=== PATIENT | female | born 1950 | race Caucasian/White ===

== ENCOUNTER 2019-04-27 13:09 | Observation (INO) ==
[2019-04-27] MEDS ORDERED: Ringers Solution, Lactated 1,000 ML IVC SCH ×2 (14:00→21:01)
--- NOTE | 2019-04-27 14:54 | Anesthesia Evaluation PreOp ---
Date of Encounter: 04/27/19 Time of Encounter: 14:52 - Past History Planned Operation: LEFT TKR Cardiac History: Denies any Significant Hx Pulmonary History: Denies Any Significant HX PATRON ATTENDANT History: Other (FIBROMYALGIA) Other Medical History: Other (OBESITY) Anesthesia History: No Prior Anesthetic Complications, Past Anesthesia Alcohol Use: none Drug use: none Medications and Allergies Cynthia-D 12 Hour Tablet 60 mg PO BID PRN 04/27/19 [History] Amitriptyline HCl 100 mg PO QPM 04/27/19 [History] Calcium 500 + Vit D Caplet 500 mg PO BID 04/27/19 [History] Diclofenac Sodium 100 mg PO DAILY 04/27/19 [History] Estradiol 2 mg PO DAILY 04/27/19 [History] FLUoxetine HCl [Fluoxetine HCl] 40 mg PO DAILY 04/27/19 [History] Mucinex Dm ER 1,200-60 mg Tab 60 - 1,200 mg PO Q12H 04/27/19 [History] [place]-3/Dha/Epa/Fish Oil [Fish Oil 1,000 mg Softgel] 1,000 mg PO DAILY 04/27/19 [History] Ondansetron HCl [Zofran] 4 mg PO Q8H PRN 04/27/19 [History] Polyethylene Glycol 3350 [MiraLAX] 17 gm PO DAILY PRN 04/27/19 [History] Tylenol 650 mg PO Q6H PRN 04/27/19 [History] Allergy/AdvReac Type Severity Reaction Status Date / Time aspirin Allergy Gastrointestinal Verified 04/17/19 09:29 Upset naproxen [From Naprosyn] Allergy Swelling Verified 04/17/19 09:29 of Lip/Tongue/Throat Penicillins Allergy Rash Verified 04/17/19 09:29 promethazine [From Phenergan] Allergy Gastrointestinal Verified 04/17/19 09:29 Upset Sulfa (Sulfonamide Allergy Rash Verified 04/17/19 09:29 Antibiotics) tetracycline [Tetracycline] Allergy Photosensit Verified 04/17/19 09:29 ivity - Meds/Allergy Pre-op Review Medications Reviewed: Yes Allergies Reviewed: Yes Beta Blockers on Current Med List: No Anesthesia Exam Vital Signs/O2 Sat, Most Current Temp Pulse Resp BP Pulse Ox 98.2 F 88 18 155/81 96 04/27/19 14:01 04/27/19 14:01 04/27/19 14:01 04/27/19 14:01 04/27/19 14:01 Weight: 107 KG - BMI 37 NPO (# of Hours): 8 - HEENT Mallampati: II Teeth: Edentulous - Cardiac Rhythm: Regular - Pulmonary Breath Sounds: bilateral Clear Anesthesia Assess/Plan ASA Score: 2 Anesthetic Plan: Regional Nerve Block, Spinal Monitoring Plan: Standard Monitors Recovery Plan: PACU
[2019-04-27] MEDS ORDERED: Scopolamine Patch 1.5 MG PATCH.TD72 TD ONE (15:08)
[2019-04-27] MEDS ORDERED: Gabapentin 300 MG CAPSULE PO ONE (15:08)
[2019-04-27] MEDS ORDERED: Acetaminophen IV 1,000 MG/100 ML INFUS..BTL IVPB ONE (15:08)
[2019-04-27] MEDS ORDERED: Albuterol 2.5 MG/3 ML NEBULIZER IH ONE (15:17)
[2019-04-27] MEDS ORDERED: *HR* HYDROmorphone (PF) 1 MG/ML SYRINGE IVP PRN (15:17)
[2019-04-27] MEDS ORDERED: *HR* OxyCODONE Immed Rel 5 MG TABLET PO PRN ×2 (15:17→21:01)
[2019-04-27] MEDS ORDERED: Ondansetron 4 MG/2 ML VIAL IVP ONE (15:17)
[2019-04-27] MEDS ORDERED: *HR* Promethazine 25 MG/ML VIAL IVP PRN ×2 (15:17→21:01)
--- NOTE | 2019-04-27 15:38 | History & Physical Report ---
Date of Encounter: 04/27/19 Time of Encounter: 15:38 24 Hour HP Update - Instructions Instructions: If the History and Physical is less than 30 days old and was completed prior to A.M. admission and or procedure and has NOT been updated on calendar day of procedure please complete this update prior to performing procedure. - Update Patient reports changes in Medical Condition: No Changes in examination, assessment, or condition: No Changes in Medication: No Preop tests/diagnostics Reviewed: Yes Surgery Remains Indicated: Yes Consent for Planned Operative Procedure(s) Verified: Yes - Pre-Operative Checklist Preoperative Checklist Indicated: No Prophylactic Antibiotic Ordered: Yes Is VTE Prophylaxis Indicated?: Yes
[2019-04-27] MEDS ORDERED: Ropivacaine/PF 0.5% 24.62 ML, EPINEPHrine 0.25 MG, Ketorolac 15 MG, Water for inj. (ste... IR ONE (16:05)
[2019-04-27] MEDS ORDERED: Tranexamic Acid 1,000 MG/10 ML VIAL ONE (16:18)
[2019-04-27] MEDS ORDERED: Lidocaine -MPF 2% 2 ML VIAL ONE ×3 (16:18→16:19)
[2019-04-27] MEDS ORDERED: Ethanol\\Acetic Acid\\Na Ace\\Ben 1,000 ML IRRIG.SOLN IR ONE ×2 (16:20→18:43)
[2019-04-27] MEDS ORDERED: Propofol 500 MG/50 ML INFUS..BTL ONE (16:22)
[2019-04-27] MEDS ORDERED: *HR* Midazolam HCl 2 MG/2 ML VIAL ONE (16:24)
[2019-04-27] MEDS ORDERED: *HR* PHENYLEPHRINE 1,000 MCG/10 ML SYRINGE IVP ONE (16:25)
[2019-04-27] MEDS ORDERED: ROPIVACAINE/PF/NS 0.25% 1 EACH SYRINGE INTRAART ONE (16:42)
[2019-04-27] MEDS ORDERED: Dexamethasone 4 MG/ML VIAL ONE (19:03)
--- NOTE | 2019-04-27 19:24 | Anesthesia Procedures ---
Date of Encounter: 04/27/19 Time of Encounter: 18:30 Procedures: Anesthesia - Epidural/Spinal Patient ID/Chart reviewed: Yes Patient examined: Yes Patient position: upright Local Anesthetic: Lidocaine 1% Interspace Used: L4-L5 Loss of Resistance (MELQUIADES): No Blood: No CSF: Yes Spinal Needle Gauge: 22 Spinal Dose: 10 mg marcaine
--- NOTE | 2019-04-27 19:30 | Orthopedic Operative Note ---
Date of procedure: 04/27/19 Pre-op diagnosis: Left knee arthritis Post-op diagnosis: same Procedure: Procedure: Left robotic-assisted Total knee replacement Estimated blood loss: 200 cc Hardware: Metal and polyethylene replacement. Ruffin Femur: 4 Tibia: 4 TS insert: 9 Patella: 36 Exam Under anesthesia: 2 degree hyperextension 5 degree valgus as calculated by the robot full flexion and no instability Procedural Notes: Grade 4 arthritic changes all 3 compartments. Operative procedure: The patient was brought to the operating room and placed on the operating room table. After general anesthesia was administered the operative knee was examined. Findings were noted in the exam under anesthesia. The operative extremity was prepped and draped in sterile surgical fashion. The patient received IV antibiotics prior to skin incision. A standard midline in cision was made centered over the patella. The incision was made through the skin and subcutaneous tissue. A medial parapatellar tendon approach was performed. Care was taken to preserve tissue along the medial aspect of the patella. And to protect the patella tendon. The deep MCL was released off the medial tibia. The infra patella fat pad was excised. The patella was everted and cut was made at the level of the insertion of the quadriceps and patella tendon. The patella was sized the guide was seated and the lug holes are drilled. Knee was brought into flexion. Patient noted to have grade 4 arthritic changes all 3 compartments. Steinmann pins were placed in the tibia and the femur for the tibial and femoral arrays respectively. Checkpoints were also placed in the tibia and the femur for calculation purposes. The knee including the femur and the tibial registered. Osteophytes, ACL and PCL were excised at this point. Extension and flexion were assessed with a valgus stress components were adjusted on the computer to balance the knee. Femoral cuts were made first with robotic assistance, these included the anterior cut posterior cuts chamfer cuts. Tibial cut was then performed with robotic assistance as well. Bone fragments were removed, as well as the medial and lateral meniscus. The size 4 femoral guide was seated box cut was made lug holes are drilled. The size 4 tibial tray was seated and prepared with the fin cutter. Trial reduction with the 9 TS Shonna revealed extension of 0 degree and 1 degree valgus full flexion. No varus valgus instability. Trial reduction revealed excellent patella tracking. All trial components were removed all bony surfaces were irrigated. The Tibia was seated followed by the femur, The selected Shonna size was seated and secured patella. Patient had similar findings for motion and stability. The knee was closed by the PA. The knee was then irrigated out with 2 L of pulse irrigation. The extensor mechanism was closed with #2 FiberWire suture and #2 PDS suture. The subcutaneous tissue was then irrigated and closed deep with #1 PDS suture superficially with 0 PDS suture and skin was closed with zip tie The patient was then placed in a sterile dressing and a postoperative brace extubated and transferred to recovery room in stable condition. Anesthesia: spinal Surgeon: Alvarado Alonzo Was there an assistant professor of german present: Yes Lead Sql Developer: Bob Jiménez Estimated blood loss (cc): 200 Condition: stable Disposition: PACU
--- NOTE | 2019-04-27 19:36 | Anesthesia Procedures ---
Date of Encounter: 04/27/19 Time of Encounter: 19:45 Procedures: Anesthesia - Nerve Block Procedure Date: 04/27/19 Time: 19:45 Allergies/Adv Reactions: Allergies Allergy/AdvReac Type Severity Reaction Status Date / Time aspirin Allergy Gastrointestinal Verified 04/17/19 09:29 Upset naproxen [From Naprosyn] Allergy Swelling Verified 04/17/19 09:29 of Lip/Tongue/Throat Penicillins Allergy Rash Verified 04/17/19 09:29 promethazine [From Phenergan] Allergy Gastrointestinal Verified 04/17/19 09:29 Upset Sulfa (Sulfonamide Allergy Rash Verified 04/17/19 09:29 Antibiotics) tetracycline [Tetracycline] Allergy Photosensit Verified 04/17/19 09:29 ivity Pre-op Diagnosis: Left Knee Arthritis Surgical Procedure: Robotic Left Toal Knee Arthroplasty Checklist: Correct Patient Identifier, Correct procedure, History checked Correct side: Left Blood Thinner: No Monitor Applied: EKG, BP, Pulse Oximetry Supplemental Oxygen via Nasal Cannula (L/min): 2 Indication: Post Op Analgesia Pre-op Neuro Deficits: No Block Type: Other (Adductor Canal Block) Sterile Technique: Yes Ultrasound used: Yes Anatomy identified: Yes Visual spread of Local: Yes Neuro Stimulation: No Blood on Needle Aspiration: No Smooth Injection of Local: Yes Pain with Injection of Local: No Prep: Chlorhexadine Needle: 21 x 100 mm Stimuplex Local: Ropivacaine (0.25% 20ml ) Volume (cc): 20ml Number of Attempts: 1 Complications: None/effective block Vitals: See Anesthesia Record Block performed in Operating Room at end of case. Comments: Adductor Canal Block performed in OR following case and BEFORE going to the PACU. 20ml of Ropivacaine 0.25% used Block performed without difficulty
--- NOTE | 2019-04-27 20:27 | Anesthesia Evaluation Post Op ---
Date of Encounter: 04/27/19 Time of Encounter: 20:35 - Vital Signs Vital Signs: O2 Sat Height 1.7 m Weight 106.594 kg O2 Sat by Pulse Oximetry 96 Vital Signs Temp Pulse Resp BP Pulse Ox 98.2 F 88 18 155/81 96 04/27/19 14:01 04/27/19 14:01 04/27/19 14:01 04/27/19 14:01 04/27/19 14:01 - Lungs Lungs: Clear Ascult./Percussion - Airway Airway: Non-obstructed - Cardiovascular Regular Rate - Mental Status Mental Status: Alert & Oriented, Answers Appropriately - Pain Pain Scale: 0 - Nausea Vomiting Nausea Vomiting: Not Present - Hydration Hydration: Ice chips - Discharge PostOp Status: Transfer Patient to floor
[2019-04-27 20:30] LABS: Hematocrit 38.5 % (35.3-44.9); Hemoglobin 12.2 g/dL (11.5-15.4)
[2019-04-27] MEDS ORDERED: Ondansetron ODT 4 MG TAB.RAPDIS PO PRN (21:01)
[2019-04-27] MEDS ORDERED: traMADol 50 MG TABLET PO PRN (21:01)
[2019-04-27] MEDS ORDERED: MOM Conc 10 ML UD.LIQ PO PRN (21:01)
[2019-04-27] MEDS ORDERED: Temazepam 15 MG CAPSULE PO PRN (21:01)
[2019-04-27] MEDS ORDERED: Loratadine/Pseudophed (12 HR) 1 EACH TABLET PO PRN (21:01)
[2019-04-27] MEDS ORDERED: HYDROcodone BIT/Homatropine 5 MG TABLET PO PRN (21:01)
[2019-04-27] MEDS ORDERED: Ondansetron 4 MG/2 ML VIAL IVP PRN (21:01)
[2019-04-27] MEDS ORDERED: Naloxone 0.4 MG/ML INJ IVP PRN (21:01)
[2019-04-27] MEDS ORDERED: Sennosides 8.6 MG TABLET PO PRN (21:01)
[2019-04-27] MEDS: Ascorbic Acid 500 MG TABLET PO SCH (22:13)
[2019-04-27] MEDS: *HR* Enoxaparin 30 MG/0.3 ML SYRINGE SQ SCH (22:13)
[2019-04-28 02:19] LABS: Basophils % 0.2 %; Hematocrit 39.9 % (35.3-44.9); Hemoglobin 12.6 g/dL (11.5-15.4); Immature Granulocytes % 0.3 % (0-4); Lymphocytes # 0.9 K/mcL (0.6-4.6); Lymphocytes % 9.8 %; Mean Corpuscular HGB Conc 31.6 g/dL (31.6-35.5); Mean Corpuscular Hemoglobin 27.3 pg (28.0-33.3); Mean Corpuscular Volume 86.6 fL (83.0-100.0); Mean Platelet Volume 9.7 fL (9.4-12.4); Monocytes # 0.2 K/mcL (0.0-1.3); Monocytes % 1.9 %; Neutrophils # 8.4 K/mcL (1.6-8.9); Platelet Count 232 K/mcL (140-400); Red Blood Count 4.61 M/mcL (3.82-4.97); Red Cell Distribution Width 14.8 % (11.5-14.5); Segmented Neutrophils % 87.8 %; White Blood Count 9.6 K/mcL (4.3-11.1)
[2019-04-28 02:39] LABS: BUN/Creatinine Ratio 22 (6-26); Blood Urea Nitrogen 22 mg/dL (8-23); Calcium 8.8 mg/dL (8.6-10.3); Carbon Dioxide 22 mEq/L (23-29); Chloride 104 mEq/L (98-107); Glucose 141 mg/dL (70-105); Osmolality,Calculated 288 (280-300); Potassium 4.8 mEq/L (3.5-5.1); Sodium 136 mEq/L (136-145); eGFR For African Americans > 60 (> 60); eGFR For Non-African Americans 53 (> 60)
[2019-04-28] MEDS: *HR* Enoxaparin 30 MG/0.3 ML SYRINGE SQ SCH ×2 (06:21→17:44)
--- NOTE | 2019-04-28 06:43 | Orthopedics Progress Note ---
Date of Encounter: 04/28/19 Time of Encounter: 06:43 Subjective Interval history: Patient was seen this morning doing well without complaints. Afebrile vital signs stable. Operative extremity: Neurovascularly intact Dressing clean dry and intact Calves nontender Assessment and plan: Continue with postoperative care Hematocrit 39 plan for discharge today Objective Vital signs: Vital Signs Temp Pulse Resp BP Pulse Ox 04/28/19 04:37 98.2 F 79 17 163/84 92 04/27/19 23:13 98.4 F 71 15 153/75 90 04/27/19 21:02 97.7 F 77 16 143/82 99 04/27/19 20:38 97.8 F 78 16 150/69 96 04/27/19 20:28 97.8 F 80 12 150/69 100 04/27/19 20:18 82 14 147/64 100 04/27/19 20:08 85 14 166/76 100 04/27/19 19:58 98.8 F 92 12 157/78 99 04/27/19 14:01 98.2 F 88 18 155/81 96 Intake and Output 04/27/19 04/27/19 04/28/19 15:59 23:59 07:59 Intake Total 250 / 250 100 / 100 Output Total 200 / 200 Balance 50 / 50 100 / 100 Intake: IV Fluids 250 / 250 100 / 100 Vancocin 1,500 MG In 0.9 % 250 / 250 Sodium Chloride 250 ML @ 167 mls/hr IVPB ONCE ONE Rx#: [id number] Ancef 2,000 MG In 0.9 % Sodium 100 / 100 Chloride 100 ML @ 200 mls/hr IVPB Q8HR [facility] Rx#:[id number] Output: Estimated Blood Loss 200 / 200 Other: # Voids 1 # Urine Diapers 1 Weight 106.594 kg 113.1 kg Blood Glucose* 105 115 130 Patient Weight 04/28/19 23:59 Weight 113.1 kg - Labs CBC & BMP: 04/28/19 02:00 04/28/19 02:00 Labs: Abnormal lab results MCH 27.3 pg (28.0-33.3) L 04/28/19 02:00 RDW 14.8 % (11.5-14.5) H 04/28/19 02:00 Carbon Dioxide 22 mEq/L (23-29) L 04/28/19 02:00 Est GFR (Non-Af Amer) 53 (> 60) L 04/28/19 02:00 Glucose 141 mg/dL (70-105) H 04/28/19 02:00 POC Glucose 130 mg/dL (70-99) H 04/28/19 05:16 Consult Discharge Plan - Plan Referrals: Elijah Nathan DO [Primary Care Provider] - Prescriptions: Enoxaparin [Lovenox] 30 mg SQ Q12HR #20 syr OxyCODONE Immed Rel [Roxicodone 5 MG] 5 mg PO Q6HR PRN 5 Days #20 tablet PRN Reason: Pain
[2019-04-28] MEDS: FLUoxetine 20 MG CAPSULE PO SCH (08:07)
[2019-04-28] MEDS: Ascorbic Acid 500 MG TABLET PO SCH ×2 (08:07→17:43)
[2019-04-28] MEDS: Multivit/Ca/Min/Fe/FA 1 TAB TABLET PO SCH (08:08)
[2019-04-28] MEDS: Diclofenac Sodium (24 HR) 100 MG TABLET PO SCH (08:08)
[2019-04-28] MEDS: (Fish Oil 1,000 Mg Softgel) PO SCH (08:08)
[2019-04-28] MEDS ORDERED: Ringers Solution, Lactated 1,000 ML ONE (09:52)
--- NOTE | 2019-04-28 12:37 | Event Note ---
Date of Encounter: 04/28/19 Time of Encounter: 11:20 PCR - POD#1 s/p left TKR 04/27/19 Patient seen at bedside. A&O x 3. she is complaining of being lightheaded and weak today. Per nurse had syncopal episode this morning. Patient was on BSC and went to get up states she took one step then became very lightheaded and she states she was able to hear everyone talking to her but could not see. currently states lightheadedness is a little better than earlier. Denies any chest pain or SOB. Afebrile. She has been running hypertensive and hypoxic since surgery 90-93% and did increase to 98% after adding 2L nasal canula O2. this was likely added during the syncopal episode this morning as patient is not currently wearing nasal canula. Will consult hospitalist for recommendations as syncopal episode is not related to hypotension, hypoglycemia or anemia and continued hypoxia this morning. Dressings do have quarter sized fresh bloody drainage to middle of incision. will draw borders and continue to monitor. will add pressure dressing if continues. No calf tenderness to palpation, good dorsiflexion of foot, sensation intact di stally. Labs reviewed. H/H - 12.6/39.9 stable, asymptomatic Pain control: adequate Participating in PT. had syncopal episode during therapy session this morning. All questions and concerns addressed. Educated on use of incentive spirometer. Encouraged ambulation and proper hydration. Patient educated on post-operative restrictions and post-operative care. I did discuss with patient DVT prophylaxis options as she is unable to take aspirin due to causing gastric ulcers, recommendation for lovenox but patient is leary of giving herself injections at home and she states eliquis is too expensive as her recently tried getting this medication with same insurance. Will young check medications and patient considering letting her give the injections if necessary. Assessment and plan: Continue with postoperative care Discharge plan: Home, preplan for outpatient therapy, awaiting therapist recommendations once able to have full eval.
--- NOTE | 2019-04-28 12:44 | Internal Medicine Consult Note ---
Date of Encounter: 04/28/19 Time of Encounter: 12:42 - Assessment and Plan (1) Syncope Current Visit: Yes Status: Acute Assessment and plan: Possible etiologies include vasovagal syncope, hypoglycemia, orthostatic hypotension. This was related to positioning as she was trying to get up with assistance, shortly before straining on the bedside commode trying to have a bowel movement. Denies CP, SOB, palpitations, n/v, diaphoresis. No focal deficits on exam. - EKG with telemetry monitoring - glucose check now, and if patient becomes symptomatic - orthostatic BP and HR vitals. Qualifiers: Syncope type: unspecified Qualified Code(s): R55 - Syncope and collapse (2) S/P total knee arthroplasty Current Visit: Yes Status: Acute Assessment and plan: Management per orthopedic surgery Qualifiers: Laterality: left Qualified Code(s): Z96.652 - Presence of left artificial knee joint - Time Spent With Patient Total time spent is greater than 50% in coordination of care (as documented) at patient's floor/unit and/or counseling patient: Internal Medicine - CN: HPI - Data of Consult Requesting Physician: Alvarado Alonzo MD - Consult Narrative History of present illness: Ms. Mayorga is a 69 year old female with history of borderline Type 2 DM is here for left TKA which was done yesterday without issue. Consult is made today for a syncopal episode. Patient tolerated procedure yesterday without issue. Earlier today, patient was on bedside commode, straining to have a bowel movement. She was unable to have a bowel movement so she had assistants stand her up. Patient states shortly after standing up, she started feeling lightheaded and passed out. Per nursing, she did not hit her head. Patient denied any change in vision, headache, loss of bowel/bladder function, focal deficits prior to incident. She denies chest pain, SOB, n/v. She awoke from syncopal episode without any confusion. Past Med Surg Social Fam HX - Past Medical History Medical history: arthritis, diabetes, fibromyalgia, glaucoma Additional medical history: hypoglycemia,anemia Psychiatric history: anxiety, depression - Past Surgical History Surgical History: appendectomy, cholecystectomy, hysterectomy Additional surgical history: bladder surgeries multiple - Social History Smoking Status: Never smoker Smokeless Tobacco Status: No Alcohol use: none Drug use: none Internal Medicine - CN: Meds Cynthia-D 12 Hour Tablet 60 mg PO BID PRN 04/27/19 [History] Amitriptyline HCl 100 mg PO QPM 04/27/19 [History] Calcium 500 + Vit D Caplet 500 mg PO BID 04/27/19 [History] Diclofenac Sodium 100 mg PO DAILY 04/27/19 [History] Enoxaparin [Lovenox] 30 mg SQ Q12HR #20 syr 04/27/19 [Rx] Estradiol 2 mg PO DAILY 04/27/19 [History] FLUoxetine HCl [Fluoxetine HCl] 40 mg PO DAILY 04/27/19 [History] Mucinex Dm ER 1,200-60 mg Tab 60 - 1,200 mg PO Q12H 04/27/19 [History] [place]-3/Dha/Epa/Fish Oil [Fish Oil 1,000 mg Softgel] 1,000 mg PO DAILY 04/27/19 [History] Ondansetron HCl [Zofran] 4 mg PO Q8H PRN 04/27/19 [History] OxyCODONE Immed Rel [Roxicodone 5 MG] 5 mg PO Q6HR PRN 5 Days #20 tablet 04/27/19 [Rx] Polyethylene Glycol 3350 [MiraLAX] 17 gm PO DAILY PRN 04/27/19 [History] Tylenol 650 mg PO Q6H PRN 04/27/19 [History] Allergy/AdvReac Type Severity Reaction Status Date / Time aspirin Allergy Gastrointestinal Verified 04/17/19 09:29 Upset naproxen [From Naprosyn] Allergy Swelling Verified 04/17/19 09:29 of Lip/Tongue/Throat Penicillins Allergy Rash Verified 04/17/19 09:29 promethazine [From Phenergan] Allergy Gastrointestinal Verified 04/17/19 09:29 Upset Sulfa (Sulfonamide Allergy Rash Verified 04/17/19 09:29 Antibiotics) tetracycline [Tetracycline] Allergy Photosensit Verified 04/17/19 [facility] - CN: Exam - Constitutional Vitals: Temp Pulse Resp BP Pulse Ox 97.9 F 64 18 170/81 96 04/28/19 11:34 04/28/19 11:34 04/28/19 11:34 04/28/19 11:34 04/28/19 11:34 General appearance IM: Present: A&O X 3, no acute distress Exam: . - Head Head exam: Present: atraumatic, normocephalic - Eye Eye exam: Present: EOMI, PERRL - ENT ENT exam: Present: mucous membranes moist - Neck Neck exam general surgery: Present: full ROM. Absent: lymphadenopathy - Respiratory Respiratory exam: Present: CTAB - Cardiovascular Cardiovascular exam IM: Present: RRR - GI/Abdominal GI/Abdominal exam IM: Present: soft. Absent: rebound, rigid, tenderness - Extremities Exam Extremities exam IM: Absent: pedal edema - Neurological Exam Neurological exam: Present: abnormal gait (gait cannot be assessed due to post- op status), alert, CN II-XII intact, no focal deficits. Absent: altered - Expanded Neurological Exam Patient oriented to: Present: person, place, time Speech: Absent: expressive aphasia, garbled, receptive aphasia, slurred, stutter, total aphasia - Skin Skin exam IM: Absent: rash Internal Medicine - CN: Reslt - Labs CBC & Chem 7: 04/28/19 02:00 04/28/19 02:00 Labs: Short CBC 04/27/19 04/28/19 Range/Units 20:13 02:00 WBC 9.6 (4.3-11.1) K/mcL Hgb 12.2 12.6 (11.5-15.4) g/dL Hct 38.5 39.9 (35.3-44.9) % Plt Count 232 (140-400) K/mcL Neutrophils # 8.4 (1.6-8.9) K/mcL BMP 04/28/19 02:00 Sodium 136 Potassium 4.8 Chloride 104 Carbon Dioxide 22 L BUN 22 Creatinine 1.02 Glucose 141 H Calcium 8.8 - Impressions Impressions Knee X-Ray 04/27/19 15:38 IMPRESSION: Status post left knee arthroplasty. No acute postoperative complication. D/ / 04/28/2019 08:03:36 Shelton Hendrix MD / eb Interpreting Provider: Shelton Hendrix MD Consult Discharge Plan - Plan Referrals: Elijah Nathan DO [Primary Care Provider] - Prescriptions: Enoxaparin [Lovenox] 30 mg SQ Q12HR #20 syr OxyCODONE Immed Rel [Roxicodone 5 MG] 5 mg PO Q6HR PRN 5 Days #20 tablet PRN Reason: Pain
--- NOTE | 2019-04-28 13:20 | Discharge Summary ---
<Alvarado Alonzo - Last Filed: 04/28/19 13:18> Orders not resulted at time of discharge: Pending orders 04/27/19 19:24 Surgical Pathology [PTH] Routine 04/28/19 13:06 ECG 12 lead ECG [ECG] Routine 04/29/19 04:00 Basic Metabolic Panel DAILY Complete Blood Count [HEME] DAILY Date of Encounter: 04/28/19 - Discharge Diagnosis (1) Arthritis of left knee Priority: Primary Status: Chronic (2) Obesity (BMI 30-39.9) Priority: Secondary Status: Chronic (3) S/P total knee arthroplasty Priority: Primary Status: Acute Qualifiers: Laterality: left Qualified Code(s): Z96.652 - Presence of left artificial knee joint (4) Syncope Priority: Primary Status: Acute Qualifiers: Syncope type: unspecified Qualified Code(s): R55 - Syncope and collapse - Hospital Course Hospital course: Ms. Mayorga is a 69 year old female - Time Spent with Patient Total time spent providing and/or coordinating discharge services: - Discharge Medications Prescriptions: New OxyCODONE Immed Rel [Roxicodone 5 MG] 5 mg PO Q6HR PRN 5 Days #20 tablet PRN Reason: Pain Enoxaparin [Lovenox] 30 mg SQ Q12HR #20 syr Meclizine [Antivert] 25 mg PO TID 7 Days #42 tablet Docusate Sodium [Colace] 100 mg PO BID 5 Days #10 capsule Continued Acetaminophen [Tylenol] 325 mg PO Q6H PRN #0 PRN Reason: Pain GuaiFENesin/Pseudophedrine [Mucinex D] 1 each PO Q12H PRN #0 PRN Reason: cough/congestion Polyethylene Glycol 3350 [MiraLAX] 17 gm PO DAILY PRN PRN Reason: Constipation FLUoxetine HCl [Fluoxetine HCl] 40 mg PO QAM Bethesda-3/Dha/Epa/Fish Oil [Fish Oil 1,000 mg Softgel] 1,000 mg PO DAILY Estradiol 2 mg PO HS Calcium Carbonate/Vitamin D3 [Calcium 500 + Vit D Caplet] 1 each PO QAM #0 Amitriptyline HCl 100 mg PO QPM Diclofenac Sodium (24 HR) [Voltaren XR] 10 mg PO HS Fexofenadine/Pseudoephedrine [Cynthia-D 12 Hour Tablet] 1 each PO BID PRN PRN Reason: Allergy Symptoms Ondansetron HCl 8 mg PO Q12H PRN PRN Reason: Nausea Home Medications: Acetaminophen [Tylenol] 325 mg PO Q6H PRN #0 04/27/19 [History] Amitriptyline HCl 100 mg PO QPM 04/27/19 [History] Calcium Carbonate/Vitamin D3 [Calcium 500 + Vit D Caplet] 1 each PO QAM #0 04/27/19 [History] Enoxaparin [Lovenox] 30 mg SQ Q12HR #20 syr 04/27/19 [Rx] Estradiol 2 mg PO HS 04/27/19 [History] FLUoxetine HCl [Fluoxetine HCl] 40 mg PO QAM 04/27/19 [History] GuaiFENesin/Pseudophedrine [Mucinex D] 1 each PO Q12H PRN #0 04/27/19 [History] Bethesda-3/Dha/Epa/Fish Oil [Fish Oil 1,000 mg Softgel] 1,000 mg PO DAILY 04/27/19 [History] OxyCODONE Immed Rel [Roxicodone 5 MG] 5 mg PO Q6HR PRN 5 Days #20 tablet 04/27/19 [Rx] Polyethylene Glycol 3350 [MiraLAX] 17 gm PO DAILY PRN 04/27/19 [History] Diclofenac Sodium (24 HR) [Voltaren XR] 10 mg PO HS 04/30/19 [History] Fexofenadine/Pseudoephedrine [Cynthia-D 12 Hour Tablet] 1 each PO BID PRN 04/30/19 [History] Ondansetron HCl 8 mg PO Q12H PRN 04/30/19 [History] Docusate Sodium [Colace] 100 mg PO BID 5 Days #10 capsule 05/01/19 [Rx] Meclizine [Antivert] 25 mg PO TID 7 Days #42 tablet 05/01/19 [Rx] Allergies/Adverse Reactions: Allergy/AdvReac Type Severity Reaction Status Date / Time aspirin Allergy Gastrointestinal Verified 04/30/19 12:54 Upset naproxen [From Naprosyn] Allergy Swelling Verified 04/30/19 12:54 of Lip/Tongue/Throat Penicillins Allergy Rash Verified 04/30/19 12:54 promethazine [From Phenergan] Allergy Gastrointestinal Verified 04/30/19 12:54 Upset Sulfa (Sulfonamide Allergy Rash Verified 04/30/19 12:54 Antibiotics) tetracycline [Tetracycline] Allergy Photosensit Verified 04/30/19 12:54 ivity Primary care physician: Elijah Dorman Colopy Consults: 04/27/19 21:01 Consult to Nutrition [CONS] Routine Comment: Consulting Provider: NUTRITION Reason for Dietary Consult: Other Other:: Proper nutrition to facilitate wound healing Consult to Occupational Therapy [CONS] Routine Comment: Evaluate, develop and implement POC Reason for Consult: post knee surgery Does patient have active BEDREST order?: No Is patient medically & hemodynamically stable?: Yes Consult to Orthopedic Navigator [CONS] [CONS] Routine Consult to Physical Therapy [CONS] Routine Comment: Evaluate, develop and impliment POC Reason for Consult: post knee surgery Does patient have active BEDREST order?: No Is patient medically & hemodynamically stable?: Yes Consult to Safe Expert [CONS] Routine Reason for SW Consult: post op joint replacement RT Post Op Consult [CONS] Routine 04/28/19 11:39 Consult to Hospitalist [CONS] Routine Consulting Provider: Hospitalist Hunter Reason for Consult: SYNCOPAL EPISODE, HTN, HYPOXIA Call Completed: Yes Labs on day of discharge: Labs from last 24 hours 04/28/19 04/28/19 04/28/19 05:16 02:00 02:00 WBC 9.6 RBC 4.61 Hgb 12.6 Hct 39.9 MCV 86.6 MCH 27.3 L MCHC 31.6 RDW 14.8 H Plt Count 232 MPV 9.7 Immature Gran % 0.3 Seg Neutrophils % 87.8 Lymphocytes % 9.8 Monocytes % 1.9 Eosinophils % 0.0 Basophils % 0.2 Neutrophils # 8.4 Lymphocytes # 0.9 Monocytes # 0.2 Eosinophils # 0.0 Basophils # 0.0 Sodium 136 Potassium 4.8 Chloride 104 Carbon Dioxide 22 L BUN 22 Creatinine 1.02 Est GFR ( Amer) > 60 Est GFR (Non-Af Amer) 53 L BUN/Creatinine Ratio 22 Glucose 141 H POC Glucose 130 H Calculated Osmolality 288 Calcium 8.8 04/27/19 04/27/19 20:13 13:55 WBC RBC Hgb 12.2 Hct 38.5 MCV MCH MCHC RDW Plt Count MPV Immature Gran % Seg Neutrophils % Lymphocytes % Monocytes % Eosinophils % Basophils % Neutrophils # Lymphocytes # Monocytes # Eosinophils # Basophils # Sodium Potassium Chloride Carbon Dioxide BUN Creatinine Est GFR ( Amer) Est GFR (Non-Af Amer) BUN/Creatinine Ratio Glucose POC Glucose 105 H Calculated Osmolality Calcium - Impressions ITS Impressions Knee X-Ray 04/27/19 15:38 IMPRESSION: Status post left knee arthroplasty. No acute postoperative complication. D/ / 04/28/2019 08:03:36 Shelton Hendrix MD / eb Interpreting Provider: Shelton Hendrix MD - Patient Status Disposition: Home, Self-Care Condition: Good - Discharge Instructions Follow Up With: Elijah Nathan DO [Primary Care Provider] - <Clover Sagastume - Last Filed: 05/01/19 11:33> Orders not resulted at time of discharge: Pending orders 04/27/19 19:24 Surgical Pathology [PTH] Routine 04/28/19 13:06 ECG 12 lead ECG [ECG] Routine Date of Encounter: 05/01/19 Time of Encounter: 09:33 - Discharge Diagnosis (1) S/P total knee arthroplasty Priority: Primary Status: Acute Qualifiers: Laterality: left Qualified Code(s): Z96.652 - Presence of left artificial knee joint (2) Arthritis of left knee Priority: Primary Status: Chronic (3) Obesity (BMI 30-39.9) Priority: Secondary Status: Chronic (4) Dizziness Priority: Secondary Status: Acute - Hospital Course Hospital course: Ms. Mayorga is a 69 year old female POD# 4 s/p Left robotic-assisted Total knee replacement [arthritis] 04/27/[address] Alonzo Patient seen at bedside. Resting comfortable. No acute distress. A&Ox3 Dressing and incision d/i. Scant old drainage noted. No calf tenderness, erythema, or warmth. Neurovascularly intact b/l LE. Labwork, vitals, and medications reviewed. Pain control: Adequate Participating in therapy. All questions and concerns addressed. Educated on use of incentive spirometer, ambulation, and hydration. Patient educated on post-operative restrictions and care. Addressed: Dressing change prior to discharge D/C plan: Home with outpatient therapy - Time Spent with Patient Total time spent providing and/or coordinating discharge services: Date of admission: 04/28/19 15:54 Primary care physician: Elijah R Colopy Consults: 04/27/19 21:01 Consult to Nutrition [CONS] Routine Comment: Consulting Provider: NUTRITION Reason for Dietary Consult: Other Other:: Proper nutrition to facilitate wound healing Consult to Occupational Therapy [CONS] Routine Comment: Evaluate, develop and implement POC Reason for Consult: post knee surgery Does patient have active BEDREST order?: No Is patient medically & hemodynamically stable?: Yes Consult to Orthopedic Navigator [CONS] [CONS] Routine Consult to Physical Therapy [CONS] Routine Comment: Evaluate, develop and impliment POC Reason for Consult: post knee surgery Does patient have active BEDREST order?: No Is patient medically & hemodynamically stable?: Yes Consult to Safe Expert [CONS] Routine Reason for SW Consult: post op joint replacement RT Post Op Consult [CONS] Routine 04/28/19 11:39 Consult to Hospitalist [CONS] Routine Consulting Provider: Hospitalist Hunter Reason for Consult: SYNCOPAL EPISODE, HTN, HYPOXIA Call Completed: Yes Discharging clinician: Alvarado Alonzo Anticipated date of discharge: 05/01/19 - VTE Documentation of Mechanical Device: Venous foot pump, device Labs on day of discharge: Labs from last 24 hours 05/01/19 05/01/19 04/30/19 06:22 06:22 16:54 WBC 9.5 RBC 4.22 Hgb 11.7 Hct 37.3 MCV 88.4 MCH 27.7 L MCHC 31.4 L RDW 15.2 H Plt Count 223 MPV 9.9 Immature Gran % 0.7 Seg Neutrophils % 61.7 Lymphocytes % 28.3 Monocytes % 6.2 Eosinophils % 2.6 Basophils % 0.5 Neutrophils # 5.8 Lymphocytes # 2.7 Monocytes # 0.6 Eosinophils # 0.3 Basophils # 0.1 Sodium 137 Potassium 4.1 Chloride 100 Carbon Dioxide 24 BUN 17 Creatinine 0.87 Est GFR ( Amer) > 60 Est GFR (Non-Af Amer) > 60 BUN/Creatinine Ratio 20 Glucose 115 H POC Glucose 128 H Calculated Osmolality 286 Calcium 9.3 Phosphorus Magnesium 04/30/19 04/30/19 04/30/19 13:54 11:22 07:28 WBC RBC Hgb Hct MCV MCH MCHC RDW Plt Count MPV Immature Gran % Seg Neutrophils % Lymphocytes % Monocytes % Eosinophils % Basophils % Neutrophils # Lymphocytes # Monocytes # Eosinophils # Basophils # Sodium Potassium Chloride Carbon Dioxide BUN Creatinine Est GFR ( Amer) Est GFR (Non-Af Amer) BUN/Creatinine Ratio Glucose POC Glucose 113 H 114 H Calculated Osmolality Calcium Phosphorus 2.4 L Magnesium 1.6 - Impressions ITS Impressions Knee X-Ray 04/27/19 15:38 IMPRESSION: Status post left knee arthroplasty. No acute postoperative complication. D/ / 04/28/2019 08:03:36 Shelton Hendrix MD / eb Interpreting Provider: Shelton Hendrix MD Head CT 04/28/19 15:08 IMPRESSION: No acute intracranial abnormality. D/ / Mark Soto MD / Mark Soto MD Interpreting Provider: Mark Soto MD Echocardiogram 04/28/19 15:09 Impressions: LVEF 60-65%. Mild left ventricular diastolic dysfunction. Normal right ventricular structure and function. No significant valvular dysfunction. No pulmonary hypertension. Left Ventricular Wall Motion: Rest Echo Findings All wall segments showed normal motion. Findings: Study Quality * Technically adequate exam. ECG Findings * Normal sinus rhythm. Left Ventricle * LVEF 60-65%. * Normal LV chamber size, wall thickness and systolic function. * Mild left ventricular diastolic dysfunction. Right Ventricle * Normal right ventricular structure and function. Left Atrium * Normal left atrial size. Right Atrium * Normal right atrial size. Interatrial Septum * Interatrial septum not well evaluated. Aortic Valve * Trileaflet aortic valve with normal function. * No aortic stenosis. * No aortic regurgitation. Mitral Valve * Normal mitral valve structure. * No mitral stenosis. * Trace mitral regurgitation. Tricuspid Valve * Normal tricuspid valve structure. * No tricuspid stenosis. * Trace tricuspid regurgitation. * Estimated RVSP is 32 mmHg. * Estimated RA pressure is 8 mmHg. * No pulmonary hypertension. Pulmonic Valve * Pulmonic valve is not well visualized. * No pulmonic stenosis. * Trace pulmonic regurgitation. Aorta * Normally sized aortic root. Pericardium * The pericardium appears normal. IVC * The IVC is not dilated. * < 50% respiratory change. - Patient Status Functional capacity at discharge: uses cane/walker Overall status at discharge: patient is progressing back to baseline - Diet and Activity Activity: as per physical therapy Diet: advance to your usual diet
[2019-04-29] MEDS ORDERED: *HR* HYDROcodone/Acet 7.5/325 mg TABLET PO ONE (02:03)
[2019-04-29 04:43] LABS: Basophils % 0.5 %; Eosinophils # 0.1 K/mcL (0.0-0.6); Eosinophils % 1.7 %; Hematocrit 36.6 % (35.3-44.9); Hemoglobin 11.5 g/dL (11.5-15.4); Immature Granulocytes % 0.4 % (0-4); Lymphocytes # 2.1 K/mcL (0.6-4.6); Lymphocytes % 26.7 %; Mean Corpuscular HGB Conc 31.4 g/dL (31.6-35.5); Mean Corpuscular Hemoglobin 27.9 pg (28.0-33.3); Mean Corpuscular Volume 88.8 fL (83.0-100.0); Mean Platelet Volume 9.6 fL (9.4-12.4); Monocytes # 0.6 K/mcL (0.0-1.3); Monocytes % 7.2 %; Neutrophils # 4.9 K/mcL (1.6-8.9); Platelet Count 192 K/mcL (140-400); Red Blood Count 4.12 M/mcL (3.82-4.97); Red Cell Distribution Width 14.8 % (11.5-14.5); Segmented Neutrophils % 63.5 %; White Blood Count 7.7 K/mcL (4.3-11.1)
[2019-04-29 04:59] LABS: BUN/Creatinine Ratio 18 (6-26); Blood Urea Nitrogen 16 mg/dL (8-23); Calcium 8.7 mg/dL (8.6-10.3); Carbon Dioxide 27 mEq/L (23-29); Chloride 102 mEq/L (98-107); Glucose 140 mg/dL (70-105); Osmolality,Calculated 285 (280-300); Sodium 136 mEq/L (136-145); eGFR For African Americans > 60 (> 60); eGFR For Non-African Americans > 60 (> 60)
[2019-04-29] MEDS: *HR* Enoxaparin 30 MG/0.3 ML SYRINGE SQ SCH ×2 (05:21→18:45)
[2019-04-29] MEDS: Diclofenac Sodium (24 HR) 100 MG TABLET PO SCH (08:10)
[2019-04-29] MEDS: Ascorbic Acid 500 MG TABLET PO SCH ×2 (08:10→18:45)
[2019-04-29] MEDS: Multivit/Ca/Min/Fe/FA 1 TAB TABLET PO SCH (08:11)
[2019-04-29] MEDS: FLUoxetine 20 MG CAPSULE PO SCH (08:11)
--- NOTE | 2019-04-29 08:47 | Internal Med Progress Note ---
Hospitalist Progress Note - Encounter Date of Encounter: 04/29/19 Time of Encounter: 08:43 - Subjective Interval History: Patient seen and examined this morning at bedside. She did have one more similar episode that she had yesterday while she was lying down on bed. She describes room spinning around but denies any blacking out or loss of consciousness. Denies feeling nauseous or ringing year. She does have a history of internal ear problems and she takes lencho -D. and on-off meclizine. Denies any chest pain or difficulty breathing. - Exam Vitals: Temp Pulse Resp BP Pulse Ox 97.7 F 78 15 119/74 93 04/29/19 07:08 04/29/19 07:08 04/29/19 07:08 04/29/19 07:08 04/29/19 07:08 Exam: General: In no acute distress. Respiratory exam: CTAB. no accessory muscle use, rales, rhonchi, wheezes Cardiovascular exam: RRR, +S1, +S2. no murmur, gallop, rubs. GI/Abdominal exam: Non-tender, Non-distended, normal bowel sounds, soft, no peritoneal signs. Extremities exam: no pedal edema, pulses palpable in b/l lower extremities. no calf tenderness. Lt knee dressing intact. Neurological exam: CN II-XII intact, AO X3, no gross focal deficits. Skin exam: No skin rash - Assessment and Plan (1) S/P total knee arthroplasty Current Visit: Yes Status: Acute (2) Dizziness Current Visit: Yes Status: Acute - Summary of Assessment and Plan Summary of Assessment and Plan: - Patient never had loss of consciousness. She had total 3 episodes none of the time she had any blacking out. She describes event as the room spinning around and her feeling weak with imbalance. - Orthostatic vitals unremarkable. - Head CT unremarkable. Patient without any focal deficits. No convulsive episodes noted. - EKG unremarkable. Telemetry reading unremarkable except periodic APCs. - Patient worried about hypoglycemia as it happened before. She is not on any diabetic medication. Blood glucose around 140s. We will check for A1c if she is diabetic. will need outpatient follow-up for further workup if she has history of hypoglycemia without diabetes medication. - Patient also mentioned some history of internal ear problems for which she takes Lencho-D which is nonformulary. Continue Claritin-D scheduled with meclizine when necessary for dizziness. - No further inpatient workup is needed for her dizziness which is more vertiginous in nature. - Patient was plan to discharge home however PT assessment is pending. We will defer discharge planning the orthopedist. Patient would like PT assessment before going home. Internal Medicine: Result - Labs CBC & Chem 7: 04/29/19 04:14 04/29/19 04:14 Labs: Short CBC 04/29/19 Range/Units 04:14 WBC 7.7 (4.3-11.1) K/mcL Hgb 11.5 (11.5-15.4) g/dL Hct 36.6 (35.3-44.9) % Plt Count 192 (140-400) K/mcL Neutrophils # 4.9 (1.6-8.9) K/mcL BMP 04/29/19 04:14 Sodium 136 Potassium 4.0 Chloride 102 Carbon Dioxide 27 BUN 16 Creatinine 0.90 Glucose 140 H Calcium 8.7 Cardiac Enzymes 04/28/19 Range/Units 15:27 Troponin I < 0.03 (< 0.04) ng/mL - Impressions Impressions Knee X-Ray 04/27/19 15:38 IMPRESSION: Status post left knee arthroplasty. No acute postoperative complication. D/ / 04/28/2019 08:03:36 Shelton Hendrix MD / eb Interpreting Provider: Shelton Hendrix MD Head CT 04/28/19 15:08 IMPRESSION: No acute intracranial abnormality. D/ / Mark Soto MD / Mark Soto MD Interpreting Provider: Mark Soto MD Consult Discharge Plan - Plan Referrals: Elijah Nathan DO [Primary Care Provider] - (1) S/P total knee arthroplasty Qualifiers: Laterality: left Qualified Code(s): Z96.652 - Presence of left artificial knee joint
[2019-04-29] MEDS: (Fish Oil 1,000 Mg Softgel) PO SCH (14:24)
[2019-04-29] MEDS: Loratadine/Pseudophed (12 HR) 1 EACH TABLET PO SCH ×2 (18:48→21:09)
[2019-04-29 21:35] LABS: Estimated Average Glucose 134 mg/dl
[2019-04-30 05:16] LABS: Hematocrit 33.5 % (35.3-44.9); Hemoglobin 10.5 g/dL (11.5-15.4); Mean Corpuscular HGB Conc 31.3 g/dL (31.6-35.5); Mean Corpuscular Volume 89.3 fL (83.0-100.0); Mean Platelet Volume 9.9 fL (9.4-12.4); Platelet Count 161 K/mcL (140-400); Red Blood Count 3.75 M/mcL (3.82-4.97); Red Cell Distribution Width 15.1 % (11.5-14.5); White Blood Count 7.5 K/mcL (4.3-11.1)
[2019-04-30 05:28] LABS: BUN/Creatinine Ratio 21 (6-26); Blood Urea Nitrogen 19 mg/dL (8-23); Calcium 8.4 mg/dL (8.6-10.3); Carbon Dioxide 24 mEq/L (23-29); Chloride 103 mEq/L (98-107); Glucose 140 mg/dL (70-105); Osmolality,Calculated 283 (280-300); Potassium 4.1 mEq/L (3.5-5.1); Sodium 134 mEq/L (136-145); eGFR For African Americans > 60 (> 60); eGFR For Non-African Americans > 60 (> 60)
[2019-04-30] MEDS: *HR* Enoxaparin 30 MG/0.3 ML SYRINGE SQ SCH ×2 (06:02→17:30)
[2019-04-30] MEDS: Ascorbic Acid 500 MG TABLET PO SCH ×2 (08:52→17:16)
[2019-04-30] MEDS: Multivit/Ca/Min/Fe/FA 1 TAB TABLET PO SCH (08:52)
[2019-04-30] MEDS: Diclofenac Sodium (24 HR) 100 MG TABLET PO SCH (08:52)
[2019-04-30] MEDS: Loratadine/Pseudophed (12 HR) 1 EACH TABLET PO SCH ×2 (08:53→21:56)
[2019-04-30] MEDS: (Fish Oil 1,000 Mg Softgel) PO SCH (08:53)
[2019-04-30] MEDS: FLUoxetine 20 MG CAPSULE PO SCH (08:53)
[2019-04-30 14:24] LABS: Magnesium 1.6 mg/dL (1.6-2.6); Phosphorous 2.4 mg/dL (2.7-4.5)
--- NOTE | 2019-04-30 19:51 | Orthopedics Progress Note ---
Date of Encounter: 04/29/19 Time of Encounter: 17:50 Subjective Principal diagnosis: Status post left total knee arthroplasty Interval history: The patient is without complaints. Afebrile vital signs are stable. Incision is clean dry and intact. Neurovascularly intact with regard to bilateral lower extremities. Plan mobilize ,continue analgesics, discharge planning. Objective Vital signs: Vital Signs Temp Pulse Resp BP Pulse Ox 04/30/19 19:23 97.8 F 84 17 120/51 95 04/30/19 12:29 98.6 F 88 16 122/94 95 04/30/19 07:26 99.0 F 86 15 170/92 93 04/30/19 04:37 148/72 04/30/19 04:00 98.3 F 92 18 160/75 94 04/29/19 23:42 98.2 F 91 17 139/78 92 04/29/19 21:30 98 Intake and Output 04/30/19 04/30/19 04/30/19 07:59 15:59 23:59 Intake Total 450 / 840 390 / 840 Balance 450 / 840 390 / 840 Intake: Oral 450 / 840 390 / 840 Other: Meal Breakfast Percent of Meal Consumed 100% # Voids 1 1 Weight 114 kg Blood Glucose* 114 113 128 Patient Weight 04/30/19 23:59 Weight 114 kg - Labs CBC & BMP: 04/30/19 04:49 04/30/19 04:49 Labs: Abnormal lab results RBC 3.75 M/mcL (3.82-4.97) L 04/30/19 04:49 Hgb 10.5 g/dL (11.5-15.4) L 04/30/19 04:49 Hct 33.5 % (35.3-44.9) L 04/30/19 04:49 MCH 27.9 pg (28.0-33.3) L 04/29/19 04:14 MCHC 31.3 g/dL (31.6-35.5) L 04/30/19 04:49 RDW 15.1 % (11.5-14.5) H 04/30/19 04:49 Sodium 134 mEq/L (136-145) L 04/30/19 04:49 Carbon Dioxide 22 mEq/L (23-29) L 04/28/19 02:00 Est GFR (Non-Af Amer) 53 (> 60) L 04/28/19 02:00 Glucose 140 mg/dL (70-105) H 04/30/19 04:49 POC Glucose 138 mg/dL (70-99) H 04/29/19 19:58 Hemoglobin A1c 6.3 % (-5.6) H 04/29/19 02:20 Calcium 8.4 mg/dL (8.6-10.3) L 04/30/19 04:49 Phosphorus 2.4 mg/dL (2.7-4.5) L 04/30/19 13:54 Consult Discharge Plan - Plan Referrals: Elijah Nathan DO [Primary Care Provider] -
--- NOTE | 2019-04-30 20:10 | Orthopedics Progress Note ---
Date of Encounter: 04/30/19 Time of Encounter: 20:09 Subjective Principal diagnosis: Status post left total knee arthroplasty Interval history: The patient is without complaints. Afebrile vital signs are stable. Incision is clean dry and intact. Neurovascularly intact with regard to bilateral lower extremities. Plan mobilize ,continue analgesics, discharge planning. Needs set up for home physical therapy per physical therapy recommendations. Objective Vital signs: Vital Signs Temp Pulse Resp BP Pulse Ox 04/30/19 19:23 97.8 F 84 17 120/51 95 04/30/19 12:29 98.6 F 88 16 122/94 95 04/30/19 07:26 99.0 F 86 15 170/92 93 04/30/19 04:37 148/72 04/30/19 04:00 98.3 F 92 18 160/75 94 04/29/19 23:42 98.2 F 91 17 139/78 92 04/29/19 21:30 98 Intake and Output 04/30/19 04/30/19 04/30/19 07:59 15:59 23:59 Intake Total 450 / 840 390 / 840 Balance 450 / 840 390 / 840 Intake: Oral 450 / 840 390 / 840 Other: Meal Breakfast Percent of Meal Consumed 100% # Voids 1 1 Weight 114 kg Blood Glucose* 114 113 128 Patient Weight 04/30/19 23:59 Weight 114 kg - Labs CBC & BMP: 04/30/19 04:49 04/30/19 04:49 Labs: Abnormal lab results RBC 3.75 M/mcL (3.82-4.97) L 04/30/19 04:49 Hgb 10.5 g/dL (11.5-15.4) L 04/30/19 04:49 Hct 33.5 % (35.3-44.9) L 04/30/19 04:49 MCH 27.9 pg (28.0-33.3) L 04/29/19 04:14 MCHC 31.3 g/dL (31.6-35.5) L 04/30/19 04:49 RDW 15.1 % (11.5-14.5) H 04/30/19 04:49 Sodium 134 mEq/L (136-145) L 04/30/19 04:49 Carbon Dioxide 22 mEq/L (23-29) L 04/28/19 02:00 Est GFR (Non-Af Amer) 53 (> 60) L 04/28/19 02:00 Glucose 140 mg/dL (70-105) H 04/30/19 04:49 POC Glucose 138 mg/dL (70-99) H 04/29/19 19:58 Hemoglobin A1c 6.3 % (-5.6) H 04/29/19 02:20 Calcium 8.4 mg/dL (8.6-10.3) L 04/30/19 04:49 Phosphorus 2.4 mg/dL (2.7-4.5) L 04/30/19 13:54 Consult Discharge Plan - Plan Referrals: Elijah Nathan DO [Primary Care Provider] -
[2019-05-01] MEDS: *HR* Enoxaparin 30 MG/0.3 ML SYRINGE SQ SCH (05:55)
--- NOTE | 2019-05-01 06:47 | Orthopedics Progress Note ---
Date of Encounter: 05/01/19 Time of Encounter: 06:46 - Assessment and Plan (1) Arthritis of left knee Current Visit: Yes Status: Chronic (2) Obesity (BMI 30-39.9) Current Visit: Yes Status: Chronic (3) S/P total knee arthroplasty Current Visit: Yes Status: Acute Qualifiers: Laterality: left Qualified Code(s): Z96.652 - Presence of left artificial knee joint (4) Syncope Current Visit: Yes Status: Deleted Qualifiers: Syncope type: unspecified Qualified Code(s): R55 - Syncope and collapse Subjective Principal diagnosis: Status post left total knee arthroplasty Interval history: Patient was seen this morning doing well without complaints. Afebrile vital signs stable. Operative extremity: Neurovascularly intact Dressing clean dry and intact Calves nontender Assessment and plan: Continue with postoperative care plan for discharge today Objective Vital signs: Vital Signs Temp Pulse Resp BP Pulse Ox 05/01/19 04:52 97.3 F L 54 18 138/85 94 05/01/19 00:34 98.4 F 68 18 138/78 96 04/30/19 21:45 95 04/30/19 19:23 97.8 F 84 17 120/51 95 04/30/19 12:29 98.6 F 88 16 122/94 95 04/30/19 07:26 99.0 F 86 15 170/92 93 Intake and Output 04/30/19 04/30/19 05/01/19 15:59 23:59 07:59 Intake Total 390 / 840 Output Total 600 / 600 Balance 390 / 840 -600 / -600 Intake: Oral 390 / 840 Output: Urine 600 / 600 Other: Meal Breakfast Percent of Meal Consumed 100% # Voids 1 Blood Glucose* 113 128 - Labs CBC & BMP: 04/30/19 04:49 04/30/19 04:49 Labs: Abnormal lab results RBC 3.75 M/mcL (3.82-4.97) L 04/30/19 04:49 Hgb 10.5 g/dL (11.5-15.4) L 04/30/19 04:49 Hct 33.5 % (35.3-44.9) L 04/30/19 04:49 MCH 27.9 pg (28.0-33.3) L 04/29/19 04:14 MCHC 31.3 g/dL (31.6-35.5) L 04/30/19 04:49 RDW 15.1 % (11.5-14.5) H 04/30/19 04:49 Sodium 134 mEq/L (136-145) L 04/30/19 04:49 Carbon Dioxide 22 mEq/L (23-29) L 04/28/19 02:00 Est GFR (Non-Af Amer) 53 (> 60) L 04/28/19 02:00 Glucose 140 mg/dL (70-105) H 04/30/19 04:49 POC Glucose 128 mg/dL (70-99) H 04/30/19 16:54 Hemoglobin A1c 6.3 % (-5.6) H 04/29/19 02:20 Calcium 8.4 mg/dL (8.6-10.3) L 04/30/19 04:49 Phosphorus 2.4 mg/dL (2.7-4.5) L 04/30/19 13:54 Consult Discharge Plan - Plan Referrals: Elijah Nathan DO [Primary Care Provider] -
[2019-05-01 07:32] LABS: Basophils # 0.1 K/mcL (0.0-0.2); Basophils % 0.5 %; Eosinophils # 0.3 K/mcL (0.0-0.6); Eosinophils % 2.6 %; Hematocrit 37.3 % (35.3-44.9); Hemoglobin 11.7 g/dL (11.5-15.4); Immature Granulocytes % 0.7 % (0-4); Lymphocytes # 2.7 K/mcL (0.6-4.6); Lymphocytes % 28.3 %; Mean Corpuscular HGB Conc 31.4 g/dL (31.6-35.5); Mean Corpuscular Hemoglobin 27.7 pg (28.0-33.3); Mean Corpuscular Volume 88.4 fL (83.0-100.0); Mean Platelet Volume 9.9 fL (9.4-12.4); Monocytes # 0.6 K/mcL (0.0-1.3); Monocytes % 6.2 %; Neutrophils # 5.8 K/mcL (1.6-8.9); Platelet Count 223 K/mcL (140-400); Red Blood Count 4.22 M/mcL (3.82-4.97); Red Cell Distribution Width 15.2 % (11.5-14.5); Segmented Neutrophils % 61.7 %; White Blood Count 9.5 K/mcL (4.3-11.1)
[2019-05-01 07:54] LABS: BUN/Creatinine Ratio 20 (6-26); Blood Urea Nitrogen 17 mg/dL (8-23); Calcium 9.3 mg/dL (8.6-10.3); Carbon Dioxide 24 mEq/L (23-29); Chloride 100 mEq/L (98-107); Glucose 115 mg/dL (70-105); Osmolality,Calculated 286 (280-300); Potassium 4.1 mEq/L (3.5-5.1); Sodium 137 mEq/L (136-145); eGFR For African Americans > 60 (> 60); eGFR For Non-African Americans > 60 (> 60)
[2019-05-01] MEDS: Loratadine/Pseudophed (12 HR) 1 EACH TABLET PO SCH (08:19)
[2019-05-01] MEDS: Multivit/Ca/Min/Fe/FA 1 TAB TABLET PO SCH (08:19)
[2019-05-01] MEDS: Diclofenac Sodium (24 HR) 100 MG TABLET PO SCH (08:20)
[2019-05-01] MEDS: FLUoxetine 20 MG CAPSULE PO SCH (08:20)
[2019-05-01] MEDS: Ascorbic Acid 500 MG TABLET PO SCH (08:20)
[2019-05-01] MEDS: (Fish Oil 1,000 Mg Softgel) PO SCH (08:21)
--- NOTE | 2019-05-01 10:42 | Electrocardiograph Report ---
[address] [place], [place] [address] Test Date: 2019-04-28 Pat Name: Elizabeth Mayorga Department: 114 Room: [facility] Gender: F Manager Lsw: : 1950 Requested By: Lilian Nelson Order Number: [id number] Reading MD: Win Padilla Measurements Intervals [place] Rate: 75 P: 43 [place]: 192 QRS: 34 QRSD: 103 T: 47 QT: 420 QTc: 449 Interpretive Statements SINUS RHYTHM Electronically Signed On 05-01-2019 10:40:57 EDT by Win Padilla
[2019-05-01 10:55] VITALS: BP 124/73
== END 2019-05-01 15:00 | disposition home or self-care (01) ==
LOC: SAMDAY 13:09 → 3NENU 13:09 → SUATTDRO 04-28 15:54
PROVIDERS: ADMIT Orthopaedic Surgery; ATTEND Internal Medicine

== ENCOUNTER 2020-05-08 19:23 | Observation (INO) ==
[2020-05-08 20:45] LABS: Basophils # 0.1 K/mcL (0.0-0.2); Basophils % 0.8 %; Eosinophils # 0.2 K/mcL (0.0-0.6); Eosinophils % 2.3 %; Hematocrit 48.1 % (35.3-44.9); Hemoglobin 15.3 g/dL (11.5-15.4); Immature Granulocytes % 0.3 % (0-4); Lymphocytes # 2.7 K/mcL (0.6-4.6); Lymphocytes % 26.3 %; Mean Corpuscular HGB Conc 31.8 g/dL (31.6-35.5); Mean Corpuscular Hemoglobin 28.2 pg (28.0-33.3); Mean Corpuscular Volume 88.6 fL (83.0-100.0); Mean Platelet Volume 9.3 fL (9.4-12.4); Monocytes # 0.6 K/mcL (0.0-1.3); Monocytes % 5.9 %; Neutrophils # 6.6 K/mcL (1.6-8.9); Platelet Count 278 K/mcL (140-400); Red Blood Count 5.43 M/mcL (3.82-4.97); Segmented Neutrophils % 64.4 %; White Blood Count 10.2 K/mcL (4.3-11.1)
[2020-05-08 20:50] LABS: Prothrombin Time 11.6 Seconds (9.4-12.1)
[2020-05-08] MEDS ORDERED: Isovue-370 500 ML BOTTLE IVP ONE (20:52)
[2020-05-08 20:53] LABS: Activated Partial Thrombo Time 36.8 Seconds (26.0-36.0)
[2020-05-08 21:05] LABS: Albumin 4.7 g/dL (3.5-5.7); Albumin/Globulin Ratio 1.3 (1.1-2.2); Bilirubin,Total 0.3 mg/dL (0.3-1.0); Calcium 9.9 mg/dL (8.6-10.3); Globulin 3.7 g/dL (2.4-3.5); Total Protein 8.4 g/dL (6.4-8.9)
[2020-05-08 22:08] LABS: Adenovirus Not Detected (Not Detect); Bordetella Pertussis Not Detected (Not Detect); Chlamydophila pneumoniae Not Detected (Not Detect); Coronavirus 229E Not Detected (Not Detect); Coronavirus HKU1 Not Detected (Not Detect); Coronavirus NL63 Not Detected (Not Detect); Coronavirus OC43 Not Detected (Not Detect); Human Metapneumovirus Not Detected (Not Detect); Human Rhinovirus/Enterovirus Not Detected (Not Detect); Influenza A Subtype 2009 H1 Not Detected (Not Detect); Influenza B Not Detected (Not Detect); Mycoplasma pneumoniae Not Detected (Not Detect); Parainfluenza Virus 1 Not Detected (Not Detect); Parainfluenza Virus 2 Not Detected (Not Detect); Parainfluenza Virus 3 Not Detected (Not Detect); Parainfluenza Virus 4 Not Detected (Not Detect); Respiratory Syncytial Virus Not Detected (Not Detect); SARS-CoV-2 Not Detected (Not Detect)
[2020-05-09] MEDS ORDERED: *HR* Heparin 5,000 UNIT/ML VIAL IVP PRN ×2 (00:42)
[2020-05-09] MEDS ORDERED: *HR* Heparin 5,000 UNIT/ML VIAL IVP ONE (00:42)
[2020-05-09] MEDS: Heparin 25,000 UNIT/250 ML D5W 25,000 UNIT/250 ML IV.SOLN IVC SCH ×2 (01:31→21:24)
[2020-05-09] MEDS ORDERED: Acetaminophen 325 MG TABLET PO PRN (01:40)
[2020-05-09] MEDS ORDERED: Naloxone 0.4 MG/ML INJ IVP PRN (01:40)
[2020-05-09] MEDS ORDERED: *HR* Promethazine 25 MG/ML VIAL IVP PRN (01:40)
[2020-05-09] MEDS: 0.9 % Sodium Chloride 1,000 ML IVC SCH ×2 (02:10→12:58)
[2020-05-09] MEDS ORDERED: GuaiFENesin/Pseudophedrine TABLET PO PRN (04:03)
[2020-05-09 07:19] LABS: Basophils # 0.1 K/mcL (0.0-0.2); Basophils % 0.7 %; Eosinophils # 0.4 K/mcL (0.0-0.6); Eosinophils % 3.3 %; Hematocrit 43.8 % (35.3-44.9); Hemoglobin 13.8 g/dL (11.5-15.4); Immature Granulocytes % 0.2 % (0-4); Lymphocytes # 4.5 K/mcL (0.6-4.6); Lymphocytes % 37.3 %; Mean Corpuscular HGB Conc 31.5 g/dL (31.6-35.5); Mean Corpuscular Hemoglobin 27.8 pg (28.0-33.3); Mean Corpuscular Volume 88.3 fL (83.0-100.0); Monocytes # 0.7 K/mcL (0.0-1.3); Monocytes % 5.8 %; Neutrophils # 6.4 K/mcL (1.6-8.9); Platelet Count 227 K/mcL (140-400); Red Blood Count 4.96 M/mcL (3.82-4.97); Red Cell Distribution Width 14.2 % (11.5-14.5); Segmented Neutrophils % 52.7 %; White Blood Count 12.1 K/mcL (4.3-11.1)
[2020-05-09 07:24] LABS: INR 1.1
[2020-05-09 07:41] LABS: BUN/Creatinine Ratio 19 (6-26); Blood Urea Nitrogen 17 mg/dL (8-23); Calcium 8.9 mg/dL (8.6-10.3); Carbon Dioxide 22 mEq/L (23-29); Chloride 103 mEq/L (98-107); Glucose 118 mg/dL (70-105); Magnesium 1.9 mg/dL (1.6-2.6); Osmolality,Calculated 285 (280-300); Potassium 3.9 mEq/L (3.5-5.1); Sodium 136 mEq/L (136-145); eGFR For African Americans > 60 (> 60); eGFR For Non-African Americans > 60 (> 60)
[2020-05-09] MEDS: FLUoxetine 20 MG CAPSULE PO SCH (08:36)
[2020-05-09] MEDS ORDERED: Perflutren Lipid Microsphere 1.3 ML in 0.9 % Sodium Chloride 8.7 ML IVP PRN (11:42)
[2020-05-09 11:52] LABS: C-Reactive Protein 9 mg/L (Less than 10)
[2020-05-09] MEDS: Aspirin 81 MG TAB.CHEW PO SCH (15:49)
[2020-05-10 03:58] LABS: Basophils # 0.1 K/mcL (0.0-0.2); Basophils % 0.8 %; Eosinophils # 0.4 K/mcL (0.0-0.6); Eosinophils % 5.2 %; Hematocrit 39.1 % (35.3-44.9); Immature Granulocytes % 0.4 % (0-4); Lymphocytes # 3.7 K/mcL (0.6-4.6); Lymphocytes % 47.8 %; Mean Corpuscular HGB Conc 30.9 g/dL (31.6-35.5); Mean Corpuscular Hemoglobin 27.6 pg (28.0-33.3); Mean Corpuscular Volume 89.1 fL (83.0-100.0); Mean Platelet Volume 9.4 fL (9.4-12.4); Monocytes # 0.5 K/mcL (0.0-1.3); Monocytes % 6.6 %; Platelet Count 190 K/mcL (140-400); Red Blood Count 4.39 M/mcL (3.82-4.97); Red Cell Distribution Width 14.1 % (11.5-14.5); Segmented Neutrophils % 39.2 %; White Blood Count 7.7 K/mcL (4.3-11.1)
[2020-05-10 03:59] LABS: Hemoglobin 12.1 g/dL (11.5-15.4)
[2020-05-10 04:17] LABS: BUN/Creatinine Ratio 16 (6-26); Blood Urea Nitrogen 13 mg/dL (8-23); Calcium 8.7 mg/dL (8.6-10.3); Carbon Dioxide 23 mEq/L (23-29); Chloride 106 mEq/L (98-107); Glucose 102 mg/dL (70-105); Osmolality,Calculated 288 (280-300); Potassium 3.8 mEq/L (3.5-5.1); Sodium 139 mEq/L (136-145); eGFR For African Americans > 60 (> 60); eGFR For Non-African Americans > 60 (> 60)
[2020-05-10] MEDS: FLUoxetine 20 MG CAPSULE PO SCH (07:58)
[2020-05-10] MEDS: Aspirin 81 MG TAB.CHEW PO SCH (07:59)
[2020-05-10 15:53] VITALS: BP 128/66
== END 2020-05-10 19:05 | disposition home or self-care (01) ==
LOC: 2NNU 19:23 → EMEROOARM 19:23 → SUATTDRO 05-09 00:54 → 2NNU 05-09 01:45
PROVIDERS: ADMIT Internal Medicine; ATTEND Internal Medicine

== ENCOUNTER 2021-06-03 15:05 | Inpatient (IN) ==
[2021-06-03] MEDS ORDERED: Isovue-370 500 ML BOTTLE IVP ONE (15:28)
[2021-06-03] MEDS ORDERED: cefTRIAXone 2,000 MG in Water for inj. (sterile) 10 ML IVP ONE (16:27)
[2021-06-03] MEDS ORDERED: Azithromycin 500 MG in 0.9 % Sodium Chloride 250 ML IVPB ONE (16:27)
[2021-06-03 16:36] LABS: Basophils % 0.6 %; Immature Granulocytes % 0.6 % (0-4)
[2021-06-03 16:43] LABS: Basophils # 0.1 K/mcL (0.0-0.2); Eosinophils # 0.2 K/mcL (0.0-0.6); Eosinophils % 1.5 %; Hematocrit 47.7 % (35.3-44.9); Hemoglobin 15.4 g/dL (11.5-15.4); Immature Platelets 2.6 % (1.1-6.1); Lymphocytes # 2.1 K/mcL (0.6-4.6); Lymphocytes % 16.7 %; Mean Corpuscular HGB Conc 32.3 g/dL (31.6-35.5); Mean Corpuscular Hemoglobin 27.4 pg (28.0-33.3); Mean Corpuscular Volume 84.9 fL (83.0-100.0); Monocytes # 0.7 K/mcL (0.0-1.3); Monocytes % 5.7 %; Neutrophils # 9.2 K/mcL (1.6-8.9); Platelet Count 332 K/mcL (140-400); Red Blood Count 5.62 M/mcL (3.82-4.97); Segmented Neutrophils % 74.9 %; White Blood Count 12.3 K/mcL (4.3-11.1)
[2021-06-03 16:44] LABS: ABG Base Excess 1 mEq/L (-2 to 3); ABG HCO3 26 mEq/L (21-27); ABG Oxygen Saturation 95 % (95-98); ABG PCO2 40 mmHg (35-45); ABG PH 7.41 pH Units (7.32-7.45); ABG PO2 76 mmHg (85-104); ABG TCO2 27 mEq/L (20-26); Blood Gas FiO2 3.5 (1-15=lpm or21-100=%)
[2021-06-03 17:06] LABS: Platelet Estimate Normal (Normal)
[2021-06-03 17:25] LABS: INR 1.2
[2021-06-03 17:27] LABS: Activated Partial Thrombo Time 33.8 Seconds (26.0-36.0)
[2021-06-03 19:15] LABS: Alanine Aminotransferase 21 Units/L (7-52); Albumin/Globulin Ratio 1.1 (1.1-2.2); Alkaline Phosphatase 82 Units/L (34-104); Aspartate Amino Transferase 32 Units/L (13-39); BUN/Creatinine Ratio 10 (6-26); Bilirubin,Direct 0.2 mg/dL (0.0-0.2); Bilirubin,Indirect 0.4 mg/dL (0.0-1.0); Bilirubin,Total 0.6 mg/dL (0.3-1.0); Blood Urea Nitrogen 12 mg/dL (8-23); Calcium 9.9 mg/dL (8.6-10.3); Carbon Dioxide 20 mEq/L (23-29); Chloride 101 mEq/L (98-107); Globulin 3.8 g/dL (2.4-3.5); Glucose 102 mg/dL (70-105); Osmolality,Calculated 284 (280-300); Potassium 3.8 mEq/L (3.5-5.1); Sodium 137 mEq/L (136-145); Total Protein 7.8 g/dL (6.4-8.9); Troponin I < 0.03 ng/mL (< 0.04); eGFR For African Americans 51 (> 60); eGFR For Non-African Americans 42 (> 60)
[2021-06-03] MEDS ORDERED: Ondansetron 4 MG/2 ML VIAL IVP PRN (23:02)
[2021-06-03] MEDS ORDERED: Naloxone 0.4 MG/ML INJ IVP PRN (23:02)
[2021-06-03 23:49] LABS: Adenovirus Not Detected (Not Detect); Bordetella Pertussis Not Detected (Not Detect); Chlamydophila pneumoniae Not Detected (Not Detect); Coronavirus 229E Not Detected (Not Detect); Coronavirus HKU1 Not Detected (Not Detect); Coronavirus NL63 Not Detected (Not Detect); Coronavirus OC43 Not Detected (Not Detect); Human Metapneumovirus Not Detected (Not Detect); Human Rhinovirus/Enterovirus Not Detected (Not Detect); Influenza A Subtype 2009 H1 Not Detected (Not Detect); Influenza B Not Detected (Not Detect); Mycoplasma pneumoniae Not Detected (Not Detect); Parainfluenza Virus 1 Not Detected (Not Detect); Parainfluenza Virus 2 Not Detected (Not Detect); Parainfluenza Virus 3 Not Detected (Not Detect); Parainfluenza Virus 4 Not Detected (Not Detect); Respiratory Syncytial Virus Not Detected (Not Detect); SARS-CoV-2 Not Detected (Not Detect)
[2021-06-04 01:17] LABS: Bacteria,Urine Few per hpf (None-Few); Bilirubin,Urine Negative (Negative); Blood,Urine Negative (Negative); Clarity,Urine Clear (Clear); Color,Urine Yellow (Yellow); Glucose,Urine (UA) Normal (Normal); Hyaline Casts,Urine Few per lpf (None Seen); Ketones,Urine Trace mg/dL (Negative); Leukocyte Esterase,Urine Trace (Negative); Mucus,Urine Few per lpf (None-Few); Nitrite,Urine Negative (Negative); Protein,Urine 50 mg/dL (Neg-Trace); Specific Gravity,Urine > 1.030 (1.010-1.025); Squamous Epithelial Cell,Urine Many per hpf (None-Few); Urobilinogen,Urine Normal (Normal)
[2021-06-04 02:13] LABS: Basophils # 0.1 K/mcL (0.0-0.2); Basophils % 0.7 %; Eosinophils # 0.3 K/mcL (0.0-0.6); Eosinophils % 3.7 %; Hematocrit 38.5 % (35.3-44.9); Immature Granulocytes % 0.4 % (0-4); Lymphocytes # 2.5 K/mcL (0.6-4.6); Lymphocytes % 26.8 %; Mean Corpuscular HGB Conc 31.9 g/dL (31.6-35.5); Mean Corpuscular Hemoglobin 27.3 pg (28.0-33.3); Mean Corpuscular Volume 85.4 fL (83.0-100.0); Mean Platelet Volume 9.6 fL (9.4-12.4); Monocytes # 0.6 K/mcL (0.0-1.3); Monocytes % 6.5 %; Neutrophils # 5.7 K/mcL (1.6-8.9); Platelet Count 262 K/mcL (140-400); Red Blood Count 4.51 M/mcL (3.82-4.97); Red Cell Distribution Width 14.9 % (11.5-14.5); Segmented Neutrophils % 61.9 %; White Blood Count 9.2 K/mcL (4.3-11.1)
[2021-06-04 02:17] LABS: Hemoglobin 12.3 g/dL (11.5-15.4)
[2021-06-04 02:31] LABS: Calcium 8.7 mg/dL (8.6-10.3); Magnesium 1.4 mg/dL (1.6-2.6); Potassium 3.8 mEq/L (3.5-5.1)
[2021-06-04] MEDS: cefTRIAXone 1,000 MG in 0.9 % Sodium Chloride Mini Bag 100 ML IVPB SCH (08:07)
[2021-06-04] MEDS: Azithromycin 500 MG in 0.9 % Sodium Chloride 250 ML IVPB SCH (08:42)
[2021-06-04] MEDS: *HR* Enoxaparin 40 MG/0.4 ML SYRINGE SQ SCH (09:15)
[2021-06-04] MEDS ORDERED: 0.9 % Sodium Chloride 1,000 ML IVC SCH (12:30)
[2021-06-04] MEDS ORDERED: Magnesium Sulfate 1 GM/102 ML PIGGYBACK IVPB ONE (13:00)
[2021-06-04 14:15] LABS: Hematocrit 39.3 % (35.3-44.9); Hemoglobin 12.1 g/dL (11.5-15.4)
[2021-06-04] MEDS: Budesonide/Formoterol 80/4.5 1 PUFF INH IH SCH (23:00)
[2021-06-05 05:52] LABS: Hematocrit 37.2 % (35.3-44.9); Hemoglobin 11.6 g/dL (11.5-15.4); Mean Corpuscular HGB Conc 31.2 g/dL (31.6-35.5); Mean Corpuscular Volume 86.5 fL (83.0-100.0); Mean Platelet Volume 9.7 fL (9.4-12.4); Platelet Count 247 K/mcL (140-400); Red Cell Distribution Width 14.7 % (11.5-14.5); White Blood Count 8.2 K/mcL (4.3-11.1)
[2021-06-05 06:09] LABS: BUN/Creatinine Ratio 12 (6-26); Blood Urea Nitrogen 10 mg/dL (8-23); Calcium 8.8 mg/dL (8.6-10.3); Carbon Dioxide 27 mEq/L (23-29); Chloride 104 mEq/L (98-107); Glucose 94 mg/dL (70-105); Magnesium 1.7 mg/dL (1.6-2.6); Osmolality,Calculated 283 (280-300); Sodium 137 mEq/L (136-145); eGFR For African Americans > 60 (> 60); eGFR For Non-African Americans > 60 (> 60)
[2021-06-05] MEDS: Budesonide/Formoterol 80/4.5 1 PUFF INH IH SCH ×2 (07:50→18:45)
[2021-06-05] MEDS: *HR* Enoxaparin 40 MG/0.4 ML SYRINGE SQ SCH (09:55)
[2021-06-05] MEDS: FLUoxetine 20 MG CAPSULE PO SCH (11:48)
[2021-06-05] MEDS: cefTRIAXone 1,000 MG in 0.9 % Sodium Chloride Mini Bag 100 ML IVPB SCH (15:20)
[2021-06-05] MEDS: Azithromycin 500 MG in 0.9 % Sodium Chloride 250 ML IVPB SCH (15:24)
[2021-06-05] MEDS: Ipratropium/Albuterol Neb 3 ML IH PRN (18:45)
[2021-06-05 22:28] LABS: Adenovirus Not Detected (Not Detect); Bordetella Pertussis Not Detected (Not Detect); Chlamydophila pneumoniae Not Detected (Not Detect); Coronavirus 229E Not Detected (Not Detect); Coronavirus HKU1 Not Detected (Not Detect); Coronavirus NL63 Not Detected (Not Detect); Coronavirus OC43 Not Detected (Not Detect); Human Metapneumovirus Not Detected (Not Detect); Human Rhinovirus/Enterovirus Not Detected (Not Detect); Influenza A Subtype 2009 H1 Not Detected (Not Detect); Influenza B Not Detected (Not Detect); Mycoplasma pneumoniae Not Detected (Not Detect); Parainfluenza Virus 1 Not Detected (Not Detect); Parainfluenza Virus 2 Not Detected (Not Detect); Parainfluenza Virus 3 Not Detected (Not Detect); Parainfluenza Virus 4 Not Detected (Not Detect); Respiratory Syncytial Virus Not Detected (Not Detect); SARS-CoV-2 Not Detected (Not Detect)
[2021-06-06 05:15] LABS: Hemoglobin 10.8 g/dL (11.5-15.4); Mean Corpuscular HGB Conc 31.8 g/dL (31.6-35.5); Mean Corpuscular Hemoglobin 27.4 pg (28.0-33.3); Mean Corpuscular Volume 86.3 fL (83.0-100.0); Mean Platelet Volume 9.6 fL (9.4-12.4); Platelet Count 250 K/mcL (140-400); Red Blood Count 3.94 M/mcL (3.82-4.97); Red Cell Distribution Width 14.6 % (11.5-14.5); White Blood Count 8.4 K/mcL (4.3-11.1)
[2021-06-06 05:35] LABS: BUN/Creatinine Ratio 14 (6-26); Blood Urea Nitrogen 11 mg/dL (8-23); Calcium 8.9 mg/dL (8.6-10.3); Carbon Dioxide 28 mEq/L (23-29); Chloride 103 mEq/L (98-107); Glucose 104 mg/dL (70-105); Osmolality,Calculated 284 (280-300); Potassium 3.9 mEq/L (3.5-5.1); Sodium 137 mEq/L (136-145); eGFR For African Americans > 60 (> 60); eGFR For Non-African Americans > 60 (> 60)
[2021-06-06] MEDS: cefTRIAXone 1,000 MG in 0.9 % Sodium Chloride Mini Bag 100 ML IVPB SCH ×2 (07:08→17:33)
[2021-06-06] MEDS: Azithromycin 500 MG in 0.9 % Sodium Chloride 250 ML IVPB SCH ×2 (07:08→18:16)
[2021-06-06] MEDS: Budesonide/Formoterol 80/4.5 1 PUFF INH IH SCH ×2 (09:49→21:48)
[2021-06-06] MEDS: FLUoxetine 20 MG CAPSULE PO SCH (09:54)
[2021-06-06] MEDS: *HR* Enoxaparin 40 MG/0.4 ML SYRINGE SQ SCH (09:54)
[2021-06-06] MEDS: Ipratropium/Albuterol Neb 3 ML IH PRN ×2 (09:54→21:48)
[2021-06-06] MEDS: predniSONE 20 MG TABLET PO SCH (11:07)
[2021-06-07 05:30] LABS: Basophils % 0.3 %; Eosinophils % 0.3 %; Hematocrit 34.6 % (35.3-44.9); Hemoglobin 10.9 g/dL (11.5-15.4); Immature Granulocytes % 0.3 % (0-4); Lymphocytes # 1.4 K/mcL (0.6-4.6); Lymphocytes % 18.4 %; Mean Corpuscular HGB Conc 31.5 g/dL (31.6-35.5); Mean Corpuscular Hemoglobin 26.9 pg (28.0-33.3); Mean Corpuscular Volume 85.4 fL (83.0-100.0); Mean Platelet Volume 9.6 fL (9.4-12.4); Monocytes # 0.5 K/mcL (0.0-1.3); Neutrophils # 5.6 K/mcL (1.6-8.9); Platelet Count 269 K/mcL (140-400); Red Blood Count 4.05 M/mcL (3.82-4.97); Red Cell Distribution Width 14.1 % (11.5-14.5); Segmented Neutrophils % 73.7 %; White Blood Count 7.6 K/mcL (4.3-11.1)
[2021-06-07 05:58] LABS: BUN/Creatinine Ratio 16 (6-26); Blood Urea Nitrogen 11 mg/dL (8-23); Calcium 9.3 mg/dL (8.6-10.3); Carbon Dioxide 28 mEq/L (23-29); Chloride 104 mEq/L (98-107); Glucose 105 mg/dL (70-105); Osmolality,Calculated 280 (280-300); Potassium 4.5 mEq/L (3.5-5.1); Sodium 135 mEq/L (136-145); eGFR For African Americans > 60 (> 60); eGFR For Non-African Americans > 60 (> 60)
[2021-06-07] MEDS: predniSONE 20 MG TABLET PO SCH (08:07)
[2021-06-07] MEDS: FLUoxetine 20 MG CAPSULE PO SCH (08:08)
[2021-06-07] MEDS: *HR* Enoxaparin 40 MG/0.4 ML SYRINGE SQ SCH (08:08)
[2021-06-07] MEDS: Budesonide/Formoterol 80/4.5 1 PUFF INH IH SCH ×2 (09:56→19:49)
[2021-06-07] MEDS: Azithromycin 250 MG TABLET PO SCH (10:29)
[2021-06-07] MEDS: cefTRIAXone 1,000 MG in 0.9 % Sodium Chloride Mini Bag 100 ML IVPB SCH (15:07)
[2021-06-08] MEDS: *HR* Enoxaparin 40 MG/0.4 ML SYRINGE SQ SCH (07:31)
[2021-06-08] MEDS: Azithromycin 250 MG TABLET PO SCH (07:32)
[2021-06-08] MEDS: predniSONE 20 MG TABLET PO SCH (07:32)
[2021-06-08] MEDS: FLUoxetine 20 MG CAPSULE PO SCH (07:32)
[2021-06-08] MEDS: Budesonide/Formoterol 80/4.5 1 PUFF INH IH SCH ×2 (07:43→19:59)
[2021-06-08] MEDS: cefTRIAXone 1,000 MG in 0.9 % Sodium Chloride Mini Bag 100 ML IVPB SCH (15:19)
[2021-06-08] MEDS ORDERED: estradioL 0.5 MG TABLET PO SCH (21:00)
[2021-06-08] MEDS: estradioL 0.5 MG TABLET PO SCH (21:15)
[2021-06-09] MEDS: predniSONE 20 MG TABLET PO SCH (07:26)
[2021-06-09] MEDS: Azithromycin 250 MG TABLET PO SCH (07:27)
[2021-06-09] MEDS: *HR* Enoxaparin 40 MG/0.4 ML SYRINGE SQ SCH (07:27)
[2021-06-09] MEDS: FLUoxetine 20 MG CAPSULE PO SCH (07:27)
[2021-06-09 10:31] LABS: Serine Protease-3 Antibody 0 AU/mL (0-19)
[2021-06-09] MEDS: Budesonide/Formoterol 80/4.5 1 PUFF INH IH SCH ×3 (11:10→19:52)
[2021-06-09] MEDS: Ipratropium/Albuterol Neb 3 ML IH PRN (11:18)
[2021-06-09 13:26] LABS: ANA IgG by ELISA NONE DETECTED (None Detected)
[2021-06-09] MEDS: MethylPREDNISolone 40 MG/ML VIAL IVP SCH (18:28)
[2021-06-09] MEDS: estradioL 0.5 MG TABLET PO SCH (21:11)
[2021-06-10] MEDS: MethylPREDNISolone 40 MG/ML VIAL IVP SCH (05:20)
[2021-06-10] MEDS ORDERED: *HR* Enoxaparin 40 MG/0.4 ML SYRINGE SQ SCH (06:00)
[2021-06-10 06:17] LABS: Basophils % 0.1 %; Hematocrit 37.8 % (35.3-44.9); Immature Granulocytes % 0.5 % (0-4); Lymphocytes # 1.7 K/mcL (0.6-4.6); Lymphocytes % 21.9 %; Mean Corpuscular HGB Conc 31.7 g/dL (31.6-35.5); Mean Corpuscular Hemoglobin 27.3 pg (28.0-33.3); Mean Corpuscular Volume 86.1 fL (83.0-100.0); Mean Platelet Volume 9.8 fL (9.4-12.4); Monocytes # 0.5 K/mcL (0.0-1.3); Monocytes % 6.6 %; Neutrophils # 5.6 K/mcL (1.6-8.9); Platelet Count 344 K/mcL (140-400); Red Blood Count 4.39 M/mcL (3.82-4.97); Red Cell Distribution Width 13.9 % (11.5-14.5); Segmented Neutrophils % 70.9 %; White Blood Count 7.8 K/mcL (4.3-11.1)
[2021-06-10 06:41] LABS: BUN/Creatinine Ratio 22 (6-26); Blood Urea Nitrogen 16 mg/dL (8-23); Calcium 9.5 mg/dL (8.6-10.3); Carbon Dioxide 33 mEq/L (23-29); Chloride 99 mEq/L (98-107); Glucose 117 mg/dL (70-105); Magnesium 1.9 mg/dL (1.6-2.6); Osmolality,Calculated 288 (280-300); Potassium 4.1 mEq/L (3.5-5.1); Sodium 138 mEq/L (136-145); eGFR For African Americans > 60 (> 60); eGFR For Non-African Americans > 60 (> 60)
[2021-06-10 07:03] VITALS: TEMP 98.4
[2021-06-10] MEDS: Budesonide/Formoterol 80/4.5 1 PUFF INH IH SCH (07:38)
[2021-06-10] MEDS: FLUoxetine 20 MG CAPSULE PO SCH (08:40)
[2021-06-10 11:02] VITALS: BP 151/76; PULSE 87
[2021-06-10 12:40] VITALS: O2SAT 98
[2021-06-12 06:51] LABS: Beef IgE <0.10 kU/L (<=0.34); Feather Mix IgE NEGATIVE kU/L (Negative); Phoma betae IgE <0.10 kU/L (<=0.34); T. vulgaris 1 Ab Precipitin NONE DETECTED (None Detected)
== END 2021-06-10 18:21 | disposition home or self-care (01) | DRG 193 ==
LOC: CDU 15:05 → 1ANU 15:05 → EMEROOARM 15:05 → SUATTDRO 22:23 → CDU 23:45 → 2ANU 06-07 10:20 → SUATTDRO 06-07 11:54
PROVIDERS: ADMIT Student in an Organized Health Care Education/Training Program; ATTEND Internal Medicine

== ENCOUNTER 2021-10-02 02:30 | Inpatient (IN) ==
[2021-10-02 03:57] LABS: BUN/Creatinine Ratio 17 (6-26); Blood Urea Nitrogen 13 mg/dL (8-23); Calcium 9.2 mg/dL (8.6-10.3); Carbon Dioxide 26 mEq/L (23-29); Chloride 100 mEq/L (98-107); Glucose 114 mg/dL (70-105); Osmolality,Calculated 285 (280-300); Potassium 3.7 mEq/L (3.5-5.1); Sodium 137 mEq/L (136-145); Troponin I < 0.03 ng/mL (< 0.04); eGFR For African Americans > 60 (> 60); eGFR For Non-African Americans > 60 (> 60)
[2021-10-02 03:58] LABS: Basophils # 0.1 K/mcL (0.0-0.2); Basophils % 0.5 %; Eosinophils # 0.3 K/mcL (0.0-0.6); Eosinophils % 2.2 %; Hematocrit 39.2 % (35.3-44.9); Hemoglobin 12.3 g/dL (11.5-15.4); Immature Granulocytes % 0.5 % (0-4); Lymphocytes # 1.5 K/mcL (0.6-4.6); Mean Corpuscular HGB Conc 31.4 g/dL (31.6-35.5); Mean Corpuscular Hemoglobin 27.2 pg (28.0-33.3); Mean Corpuscular Volume 86.5 fL (83.0-100.0); Mean Platelet Volume 9.7 fL (9.4-12.4); Monocytes # 0.7 K/mcL (0.0-1.3); Monocytes % 6.2 %; Neutrophils # 9.1 K/mcL (1.6-8.9); Platelet Count 293 K/mcL (140-400); Red Blood Count 4.53 M/mcL (3.82-4.97); Red Cell Distribution Width 14.6 % (11.5-14.5); Segmented Neutrophils % 77.6 %; White Blood Count 11.8 K/mcL (4.3-11.1)
[2021-10-02 04:31] LABS: Adenovirus Not Detected (Not Detect); Coronavirus 229E Not Detected (Not Detect); Coronavirus HKU1 Not Detected (Not Detect); Coronavirus NL63 Not Detected (Not Detect); Coronavirus OC43 Not Detected (Not Detect)
[2021-10-02 04:32] LABS: Bordetella Pertussis Not Detected (Not Detect); Chlamydophila pneumoniae Not Detected (Not Detect); Human Metapneumovirus Not Detected (Not Detect); Human Rhinovirus/Enterovirus Not Detected (Not Detect); Influenza A Subtype 2009 H1 Not Detected (Not Detect); Influenza B Not Detected (Not Detect); Mycoplasma pneumoniae Not Detected (Not Detect); Parainfluenza Virus 1 Not Detected (Not Detect); Parainfluenza Virus 2 Not Detected (Not Detect); Parainfluenza Virus 3 Not Detected (Not Detect); Parainfluenza Virus 4 Not Detected (Not Detect); Respiratory Syncytial Virus Not Detected (Not Detect)
[2021-10-02 04:33] LABS: SARS-CoV-2 DETECTED (Not Detect)
[2021-10-02] MEDS ORDERED: Isovue-370 500 ML BOTTLE IVP ONE (04:33)
[2021-10-02] MEDS ORDERED: *HR* Heparin 5,000 UNIT/ML VIAL IVP PRN ×2 (05:25)
[2021-10-02] MEDS ORDERED: *HR* Heparin 5,000 UNIT/ML VIAL IVP ONE (05:25)
[2021-10-02] MEDS ORDERED: Heparin 25,000UNIT/250ML 1/2NS 25,000 UNIT/250 ML IV.SOLN IVC SCH (05:30)
[2021-10-02] MEDS ORDERED: Acetaminophen 325 MG TABLET PO PRN (05:38)
[2021-10-02] MEDS ORDERED: Ondansetron 4 MG/2 ML VIAL IVP PRN (05:38)
[2021-10-02] MEDS ORDERED: Naloxone 0.4 MG/ML INJ IVP PRN (05:38)
[2021-10-02] MEDS ORDERED: Ipratropium 1 PUFF INHALER IH PRN (05:39)
[2021-10-02] MEDS ORDERED: D5% in Water 1,000 ML IVC PRN (05:44)
[2021-10-02] MEDS ORDERED: *HR* Dextrose 50 % in Water (Syg) 50 ML SYRINGE IVP PRN (05:44)
[2021-10-02] MEDS ORDERED: Dextrose Gel 15 GM/37.5 ML TUBE PO PRN ×2 (05:44)
[2021-10-02] MEDS: Insulin LISPRO 300 UNITS/3 ML VIAL SUBQ SCH ×3 (09:23→16:59)
[2021-10-02 10:46] LABS: INR 1.2; Prothrombin Time 13.9 Seconds (9.4-12.1)
[2021-10-02 14:40] LABS: Magnesium 1.8 mg/dL (1.6-2.6); Phosphorous 2.9 mg/dL (2.7-4.5)
[2021-10-03] MEDS: Heparin 25,000 UNIT/250 ML 25,000 UNIT/250 ML IV.SOLN IVC SCH ×2 (00:36→15:44)
[2021-10-03 01:52] LABS: Hematocrit 40.9 % (35.3-44.9); Hemoglobin 12.6 g/dL (11.5-15.4); Mean Corpuscular HGB Conc 30.8 g/dL (31.6-35.5); Mean Corpuscular Hemoglobin 27.1 pg (28.0-33.3); Platelet Count 294 K/mcL (140-400); Red Blood Count 4.65 M/mcL (3.82-4.97); Red Cell Distribution Width 14.3 % (11.5-14.5); White Blood Count 9.6 K/mcL (4.3-11.1)
[2021-10-03 06:32] LABS: BUN/Creatinine Ratio 16 (6-26); Blood Urea Nitrogen 11 mg/dL (8-23); Calcium 9.3 mg/dL (8.6-10.3); Carbon Dioxide 28 mEq/L (23-29); Chloride 102 mEq/L (98-107); Glucose 104 mg/dL (70-105); Osmolality,Calculated 286 (280-300); Sodium 138 mEq/L (136-145); Troponin I < 0.03 ng/mL (< 0.04); eGFR For African Americans > 60 (> 60); eGFR For Non-African Americans > 60 (> 60)
[2021-10-03] MEDS: FLUoxetine 20 MG CAPSULE PO SCH (08:54)
[2021-10-03] MEDS: Cholecalciferol (D-3) 1,000 UNIT (25MCG) TABLET PO SCH (08:55)
[2021-10-03] MEDS: Insulin LISPRO 300 UNITS/3 ML VIAL SUBQ SCH ×3 (08:55→17:19)
[2021-10-03 09:56] LABS: C-Reactive Protein 53 mg/L (Less than 10)
[2021-10-03 13:24] LABS: Ferritin 201 ng/mL (10-120)
[2021-10-03] MEDS: Apixaban 5 MG TABLET PO SCH ×2 (17:30→22:16)
[2021-10-03] MEDS: Furosemide 20 MG/2 ML VIAL IVP SCH (17:30)
[2021-10-04] MEDS: Insulin LISPRO 300 UNITS/3 ML VIAL SUBQ SCH ×3 (09:03→16:56)
[2021-10-04] MEDS: Furosemide 20 MG/2 ML VIAL IVP SCH ×2 (09:41→16:48)
[2021-10-04] MEDS: Apixaban 5 MG TABLET PO SCH ×2 (09:43→22:06)
[2021-10-04] MEDS: Cholecalciferol (D-3) 1,000 UNIT (25MCG) TABLET PO SCH (09:43)
[2021-10-04] MEDS: FLUoxetine 20 MG CAPSULE PO SCH (09:43)
[2021-10-05] MEDS: Insulin LISPRO 300 UNITS/3 ML VIAL SUBQ SCH ×3 (09:35→16:12)
[2021-10-05 09:36] LABS: Basophils # 0.1 K/mcL (0.0-0.2); Basophils % 0.5 %; Eosinophils # 0.2 K/mcL (0.0-0.6); Eosinophils % 1.6 %; Hematocrit 42.1 % (35.3-44.9); Hemoglobin 13.3 g/dL (11.5-15.4); Immature Granulocytes % 0.6 % (0-4); Lymphocytes # 4.3 K/mcL (0.6-4.6); Lymphocytes % 34.5 %; Mean Corpuscular HGB Conc 31.6 g/dL (31.6-35.5); Mean Corpuscular Hemoglobin 27.8 pg (28.0-33.3); Mean Corpuscular Volume 88.1 fL (83.0-100.0); Mean Platelet Volume 9.8 fL (9.4-12.4); Monocytes # 1.3 K/mcL (0.0-1.3); Monocytes % 10.6 %; Neutrophils # 6.5 K/mcL (1.6-8.9); Platelet Count 337 K/mcL (140-400); Red Blood Count 4.78 M/mcL (3.82-4.97); Red Cell Distribution Width 14.6 % (11.5-14.5); Segmented Neutrophils % 52.2 %; White Blood Count 12.4 K/mcL (4.3-11.1)
[2021-10-05] MEDS: Cholecalciferol (D-3) 1,000 UNIT (25MCG) TABLET PO SCH (09:36)
[2021-10-05] MEDS: Furosemide 20 MG/2 ML VIAL IVP SCH ×2 (09:36→16:12)
[2021-10-05] MEDS: Apixaban 5 MG TABLET PO SCH ×2 (09:37→20:01)
[2021-10-05] MEDS: FLUoxetine 20 MG CAPSULE PO SCH (09:37)
[2021-10-05 11:43] LABS: BUN/Creatinine Ratio 21 (6-26); Blood Urea Nitrogen 18 mg/dL (8-23); Calcium 10.1 mg/dL (8.6-10.3); Carbon Dioxide 31 mEq/L (23-29); Chloride 96 mEq/L (98-107); Glucose 137 mg/dL (70-105); Magnesium 1.8 mg/dL (1.6-2.6); Osmolality,Calculated 288 (280-300); Phosphorous 4.3 mg/dL (2.7-4.5); Sodium 137 mEq/L (136-145); eGFR For African Americans > 60 (> 60); eGFR For Non-African Americans > 60 (> 60)
[2021-10-06 03:32] LABS: Eosinophils % 0.9 %; Hematocrit 42.9 % (35.3-44.9); Hemoglobin 13.2 g/dL (11.5-15.4); Immature Granulocytes % 0.8 % (0-4); Lymphocytes % 27.2 %; Mean Corpuscular HGB Conc 30.8 g/dL (31.6-35.5); Mean Corpuscular Hemoglobin 27.3 pg (28.0-33.3); Mean Corpuscular Volume 88.8 fL (83.0-100.0); Mean Platelet Volume 9.5 fL (9.4-12.4); Monocytes % 6.9 %; Platelet Count 371 K/mcL (140-400); Red Blood Count 4.83 M/mcL (3.82-4.97); Red Cell Distribution Width 14.6 % (11.5-14.5); Segmented Neutrophils % 63.7 %; White Blood Count 11.7 K/mcL (4.3-11.1)
[2021-10-06 03:33] LABS: Basophils # 0.1 K/mcL (0.0-0.2); Basophils % 0.5 %; Eosinophils # 0.1 K/mcL (0.0-0.6); Lymphocytes # 3.2 K/mcL (0.6-4.6); Monocytes # 0.8 K/mcL (0.0-1.3); Neutrophils # 7.4 K/mcL (1.6-8.9)
[2021-10-06 03:40] LABS: Fibrinogen 628 mg/dL (169-393)
[2021-10-06 03:44] LABS: D-Dimer 253 ng/mLFEU (0-500)
[2021-10-06 05:43] LABS: BUN/Creatinine Ratio 25 (6-26); Blood Urea Nitrogen 22 mg/dL (8-23); Calcium 10.1 mg/dL (8.6-10.3); Carbon Dioxide 29 mEq/L (23-29); Chloride 97 mEq/L (98-107); Glucose 113 mg/dL (70-105); Lactate Dehydrogenase 194 Units/L (140-271); Osmolality,Calculated 288 (280-300); Potassium 3.6 mEq/L (3.5-5.1); Sodium 137 mEq/L (136-145); eGFR For African Americans > 60 (> 60); eGFR For Non-African Americans > 60 (> 60)
[2021-10-06 05:56] LABS: Ferritin 141 ng/mL (10-120)
[2021-10-06] MEDS: Insulin LISPRO 300 UNITS/3 ML VIAL SUBQ SCH ×3 (08:01→17:15)
[2021-10-06] MEDS: FLUoxetine 20 MG CAPSULE PO SCH (08:09)
[2021-10-06] MEDS: Cholecalciferol (D-3) 1,000 UNIT (25MCG) TABLET PO SCH (08:09)
[2021-10-06] MEDS: Furosemide 20 MG/2 ML VIAL IVP SCH ×2 (08:09→17:15)
[2021-10-06] MEDS: Apixaban 5 MG TABLET PO SCH ×2 (08:10→21:42)
[2021-10-07 02:34] LABS: ABG Base Excess 4 mEq/L (-2 to 3); ABG HCO3 28 mEq/L (21-27); ABG Oxygen Saturation 86 % (95-98); ABG PCO2 38 mmHg (35-45); ABG PH 7.48 pH Units (7.32-7.45); ABG PO2 47 mmHg (85-104); ABG TCO2 29 mEq/L (20-26)
[2021-10-07 08:19] LABS: Calcium 10.2 mg/dL (8.6-10.3); Phosphorous 4.5 mg/dL (2.7-4.5); Potassium 3.7 mEq/L (3.5-5.1)
[2021-10-07] MEDS: Insulin LISPRO 300 UNITS/3 ML VIAL SUBQ SCH ×3 (08:55→16:49)
[2021-10-07] MEDS: Cholecalciferol (D-3) 1,000 UNIT (25MCG) TABLET PO SCH (09:05)
[2021-10-07] MEDS: FLUoxetine 20 MG CAPSULE PO SCH (09:06)
[2021-10-07] MEDS: dexAMETHasone 4 MG TABLET PO SCH (09:06)
[2021-10-07] MEDS: Apixaban 5 MG TABLET PO SCH ×2 (09:06→21:13)
[2021-10-07] MEDS: Furosemide 20 MG/2 ML VIAL IVP SCH ×2 (09:07→16:48)
[2021-10-07 22:58] LABS: Bilirubin,Urine Negative (Negative); Blood,Urine Negative (Negative); Clarity,Urine Clear (Clear); Color,Urine Colorless (Yellow); Glucose,Urine (UA) Normal (Normal); Ketones,Urine Negative (Negative); Leukocyte Esterase,Urine Negative (Negative); Nitrite,Urine Positive (Negative); Protein,Urine Negative (Neg-Trace); RBC,Urine 0-3 per hpf (0-3); Specific Gravity,Urine 1.012 (1.010-1.025); Squamous Epithelial Cell,Urine Few per hpf (None-Few); Urobilinogen,Urine Normal (Normal); WBC,Urine 0-3 per hpf (0-3)
[2021-10-08] MEDS: Insulin LISPRO 300 UNITS/3 ML VIAL SUBQ SCH ×3 (07:25→15:51)
[2021-10-08] MEDS: FLUoxetine 20 MG CAPSULE PO SCH (07:45)
[2021-10-08] MEDS: Apixaban 5 MG TABLET PO SCH ×2 (07:45→20:04)
[2021-10-08] MEDS: Furosemide 20 MG/2 ML VIAL IVP SCH ×2 (07:45→16:25)
[2021-10-08] MEDS: Cholecalciferol (D-3) 1,000 UNIT (25MCG) TABLET PO SCH (07:46)
[2021-10-08] MEDS: dexAMETHasone 4 MG TABLET PO SCH (07:46)
[2021-10-09 04:25] LABS: BUN/Creatinine Ratio 34 (6-26); Blood Urea Nitrogen 31 mg/dL (8-23); Calcium 9.9 mg/dL (8.6-10.3); Carbon Dioxide 33 mEq/L (23-29); Chloride 92 mEq/L (98-107); Glucose 131 mg/dL (70-105); Osmolality,Calculated 286 (280-300); Potassium 3.2 mEq/L (3.5-5.1); Sodium 134 mEq/L (136-145); eGFR For African Americans > 60 (> 60); eGFR For Non-African Americans 60 (> 60)
[2021-10-09] MEDS: FLUoxetine 20 MG CAPSULE PO SCH (10:28)
[2021-10-09] MEDS: Cholecalciferol (D-3) 1,000 UNIT (25MCG) TABLET PO SCH (10:28)
[2021-10-09] MEDS: dexAMETHasone 4 MG TABLET PO SCH (10:28)
[2021-10-09] MEDS: Apixaban 5 MG TABLET PO SCH ×2 (10:28→20:08)
[2021-10-09] MEDS: Insulin LISPRO 300 UNITS/3 ML VIAL SUBQ SCH ×3 (10:52→19:16)
[2021-10-09 15:18] VITALS: TEMP 98.1
[2021-10-09 19:13] VITALS: BP 125/75; PULSE 92; O2SAT 93
== END 2021-10-09 22:32 | DRG 177 ==
LOC: EMEROOARM 02:30 → 3NENU 02:30 → SUATTDRO 12:50
PROVIDERS: ADMIT Internal Medicine; ATTEND Family Medicine

== ENCOUNTER 2021-10-19 10:19 | Inpatient (IN) ==
[2021-10-19] MEDS ORDERED: Naloxone 0.4 MG/ML INJ IVP PRN (13:50)
[2021-10-19] MEDS ORDERED: Albuterol 2.5 MG/3 ML NEBULIZER IH PRN (14:12)
[2021-10-19] MEDS ORDERED: Sennosides/Docusate Sodium TABLET PO PRN (14:12)
[2021-10-19] MEDS: Acetylcysteine 10% 2 ML INHSOL IH SCH ×2 (18:13→21:05)
[2021-10-19] MEDS: estradioL 0.5 MG TABLET PO SCH (20:58)
[2021-10-19] MEDS: Apixaban 5 MG TABLET PO SCH (20:59)
[2021-10-19] MEDS: Ipratropium/Albuterol Neb 3 ML IH PRN (21:05)
[2021-10-19] MEDS: Budesonide/Formoterol 80/4.5 1 PUFF INH IH SCH (21:05)
[2021-10-20 03:26] LABS: Basophils % 0.1 %; Hematocrit 33.8 % (35.3-44.9); Hemoglobin 10.5 g/dL (11.5-15.4); Immature Granulocytes % 0.7 % (0-4); Lymphocytes % 11.3 %; Mean Corpuscular HGB Conc 31.1 g/dL (31.6-35.5); Mean Corpuscular Hemoglobin 26.9 pg (28.0-33.3); Mean Corpuscular Volume 86.4 fL (83.0-100.0); Mean Platelet Volume 9.6 fL (9.4-12.4); Monocytes # 0.1 K/mcL (0.0-1.3); Monocytes % 1.6 %; Neutrophils # 7.6 K/mcL (1.6-8.9); Platelet Count 245 K/mcL (140-400); Red Blood Count 3.91 M/mcL (3.82-4.97); Red Cell Distribution Width 14.8 % (11.5-14.5); Segmented Neutrophils % 86.3 %; White Blood Count 8.8 K/mcL (4.3-11.1)
[2021-10-20] MEDS: Acetylcysteine 10% 2 ML INHSOL IH SCH ×4 (03:30→20:49)
[2021-10-20] MEDS: Ipratropium/Albuterol Neb 3 ML IH PRN ×4 (03:30→20:49)
[2021-10-20 03:48] LABS: BUN/Creatinine Ratio 17 (6-26); Blood Urea Nitrogen 12 mg/dL (8-23); Calcium 9.3 mg/dL (8.6-10.3); Carbon Dioxide 27 mEq/L (23-29); Chloride 99 mEq/L (98-107); Glucose 143 mg/dL (70-105); Osmolality,Calculated 282 (280-300); Potassium 4.4 mEq/L (3.5-5.1); Sodium 135 mEq/L (136-145); eGFR For African Americans > 60 (> 60); eGFR For Non-African Americans > 60 (> 60)
[2021-10-20] MEDS: Budesonide/Formoterol 80/4.5 1 PUFF INH IH SCH ×2 (07:30→20:49)
[2021-10-20] MEDS ORDERED: (Omega-3/Dha/Epa/Fish Oil [Fish Oil 1,000 Mg Softgel] PO SCH (09:00)
[2021-10-20] MEDS: FLUoxetine 20 MG CAPSULE PO SCH (09:21)
[2021-10-20] MEDS: Vitamin B Complex/Vit C/Vit E 1 EACH TABLET PO SCH (09:21)
[2021-10-20] MEDS: Apixaban 5 MG TABLET PO SCH (09:22)
[2021-10-20] MEDS: Nystatin SUSP 5 ML UD.LIQ PO SCH ×3 (13:26→19:33)
[2021-10-20] MEDS: estradioL 0.5 MG TABLET PO SCH (19:29)
[2021-10-21 03:32] LABS: Basophils % 0.2 %; Eosinophils % 0.2 %; Hematocrit 35.9 % (35.3-44.9); Hemoglobin 10.8 g/dL (11.5-15.4); Immature Granulocytes % 0.6 % (0-4); Lymphocytes # 1.5 K/mcL (0.6-4.6); Lymphocytes % 13.2 %; Mean Corpuscular HGB Conc 30.1 g/dL (31.6-35.5); Mean Corpuscular Hemoglobin 27.6 pg (28.0-33.3); Mean Corpuscular Volume 91.8 fL (83.0-100.0); Mean Platelet Volume 9.7 fL (9.4-12.4); Monocytes # 0.7 K/mcL (0.0-1.3); Neutrophils # 9.2 K/mcL (1.6-8.9); Platelet Count 262 K/mcL (140-400); Red Blood Count 3.91 M/mcL (3.82-4.97); Red Cell Distribution Width 14.6 % (11.5-14.5); Segmented Neutrophils % 79.8 %; White Blood Count 11.5 K/mcL (4.3-11.1)
[2021-10-21 03:56] LABS: BUN/Creatinine Ratio 19 (6-26); Blood Urea Nitrogen 16 mg/dL (8-23); Calcium 9.4 mg/dL (8.6-10.3); Carbon Dioxide 27 mEq/L (23-29); Chloride 100 mEq/L (98-107); Glucose 131 mg/dL (70-105); Osmolality,Calculated 285 (280-300); Potassium 4.1 mEq/L (3.5-5.1); Sodium 136 mEq/L (136-145); eGFR For African Americans > 60 (> 60); eGFR For Non-African Americans > 60 (> 60)
[2021-10-21] MEDS: Ipratropium/Albuterol Neb 3 ML IH PRN ×5 (04:04→22:37)
[2021-10-21] MEDS: Acetylcysteine 10% 2 ML INHSOL IH SCH ×5 (04:05→22:37)
[2021-10-21] MEDS: Budesonide/Formoterol 80/4.5 1 PUFF INH IH SCH ×2 (08:00→22:37)
[2021-10-21] MEDS: Vitamin B Complex/Vit C/Vit E 1 EACH TABLET PO SCH (08:07)
[2021-10-21] MEDS: FLUoxetine 20 MG CAPSULE PO SCH (08:07)
[2021-10-21] MEDS: Nystatin SUSP 5 ML UD.LIQ PO SCH ×4 (08:08→20:38)
[2021-10-21] MEDS ORDERED: Furosemide 20 MG/2 ML VIAL IVP ONE ×2 (15:33→18:15)
[2021-10-21] MEDS: estradioL 0.5 MG TABLET PO SCH (20:38)
[2021-10-22] MEDS: Ipratropium/Albuterol Neb 3 ML IH PRN ×4 (03:37→20:48)
[2021-10-22] MEDS: Acetylcysteine 10% 2 ML INHSOL IH SCH ×4 (03:38→20:48)
[2021-10-22 07:05] LABS: Hematocrit 33.9 % (35.3-44.9); Hemoglobin 10.7 g/dL (11.5-15.4); Immature Granulocytes % 0.9 % (0-4); Lymphocytes % 11.2 %; Mean Corpuscular HGB Conc 31.6 g/dL (31.6-35.5); Mean Corpuscular Hemoglobin 27.6 pg (28.0-33.3); Mean Corpuscular Volume 87.4 fL (83.0-100.0); Mean Platelet Volume 9.8 fL (9.4-12.4); Monocytes # 0.3 K/mcL (0.0-1.3); Monocytes % 3.7 %; Neutrophils # 7.7 K/mcL (1.6-8.9); Platelet Count 251 K/mcL (140-400); Red Blood Count 3.88 M/mcL (3.82-4.97); Red Cell Distribution Width 14.6 % (11.5-14.5); Segmented Neutrophils % 84.2 %; White Blood Count 9.1 K/mcL (4.3-11.1)
[2021-10-22 07:38] LABS: BUN/Creatinine Ratio 22 (6-26); Blood Urea Nitrogen 15 mg/dL (8-23); Calcium 9.4 mg/dL (8.6-10.3); Carbon Dioxide 30 mEq/L (23-29); Chloride 97 mEq/L (98-107); Glucose 140 mg/dL (70-105); Osmolality,Calculated 287 (280-300); Potassium 4.3 mEq/L (3.5-5.1); Sodium 137 mEq/L (136-145); eGFR For African Americans > 60 (> 60); eGFR For Non-African Americans > 60 (> 60)
[2021-10-22] MEDS: Budesonide/Formoterol 80/4.5 1 PUFF INH IH SCH ×2 (08:38→20:48)
[2021-10-22] MEDS: Furosemide 20 MG/2 ML VIAL IVP SCH ×2 (09:52→20:30)
[2021-10-22] MEDS: Vitamin B Complex/Vit C/Vit E 1 EACH TABLET PO SCH (09:52)
[2021-10-22] MEDS: FLUoxetine 20 MG CAPSULE PO SCH (09:52)
[2021-10-22] MEDS: Nystatin SUSP 5 ML UD.LIQ PO SCH ×4 (09:53→20:36)
[2021-10-22] MEDS: Ascorbic Acid 500 MG TABLET PO SCH (09:54)
[2021-10-22] MEDS: Zinc Sulfate 220 MG CAPSULE PO SCH (09:56)
[2021-10-22] MEDS: Cholecalciferol (D-3) 1,000 UNIT (25MCG) TABLET PO SCH (09:56)
[2021-10-22] MEDS: *HR* Heparin 5,000 UNIT/ML VIAL SQ SCH (18:29)
[2021-10-22] MEDS: estradioL 0.5 MG TABLET PO SCH (20:26)
[2021-10-23] MEDS: Acetylcysteine 10% 2 ML INHSOL IH SCH ×4 (03:37→22:05)
[2021-10-23] MEDS: Budesonide/Formoterol 80/4.5 1 PUFF INH IH SCH ×2 (08:25→22:05)
[2021-10-23] MEDS: Ipratropium/Albuterol Neb 3 ML IH PRN ×3 (08:26→22:05)
[2021-10-23] MEDS ORDERED: *HR* Propofol 200 MG/20 ML VIAL IVP ONE (09:24)
[2021-10-23] MEDS ORDERED: *HR* FentaNYL (PF) 100 MCG/2 ML VIAL ONE (09:24)
[2021-10-23] MEDS ORDERED: *HR* Rocuronium Bromide 50 MG/5 ML VIAL ONE (09:26)
[2021-10-23] MEDS ORDERED: Lidocaine -MPF 2% 5 ML VIAL ONE (09:26)
[2021-10-23] MEDS ORDERED: *HR* Succinylcholine 200 MG/10 ML VIAL IVP ONE (09:26)
[2021-10-23] MEDS ORDERED: Ondansetron 4 MG/2 ML VIAL ONE (09:26)
[2021-10-23] MEDS ORDERED: Lidocaine -MPF 4% 5 ML AMPUL ONE (09:26)
[2021-10-23] MEDS ORDERED: *HR* HYDROmorphone PF 0.5 MG/0.5 ML SYRINGE IVP PRN (09:48)
[2021-10-23] MEDS ORDERED: Acetaminophen IV 1,000 MG/100 ML BAG IVPB ONE (09:48)
[2021-10-23] MEDS ORDERED: Famotidine 20 MG/2 ML VIAL IVP ONE (09:48)
[2021-10-23] MEDS ORDERED: *HR* OxyCODONE Immed Rel 5 MG TABLET PO PRN (09:48)
[2021-10-23] MEDS ORDERED: Scopolamine Patch 1.5 MG PATCH.TD72 TD ONE (09:52)
[2021-10-23] MEDS ORDERED: Scopolamine Patch 1.5 MG PATCH.TD72 ONE (09:54)
[2021-10-23] MEDS ORDERED: *HR* EPINEPHrine 1 MG/10 ML SYRINGE INTRATRACH PRN (10:58)
[2021-10-23] MEDS ORDERED: Ringers Solution, Lactated 0 ML ONE (11:23)
[2021-10-23] MEDS: *HR* Labetalol 20 MG/4 ML SYRINGE IVP PRN ×2 (11:25→11:52)
[2021-10-23] MEDS: Nystatin SUSP 5 ML UD.LIQ PO SCH ×4 (12:52→20:42)
[2021-10-23] MEDS: Zinc Sulfate 220 MG CAPSULE PO SCH (13:02)
[2021-10-23] MEDS: Vitamin B Complex/Vit C/Vit E 1 EACH TABLET PO SCH (13:02)
[2021-10-23] MEDS: FLUoxetine 20 MG CAPSULE PO SCH (13:02)
[2021-10-23] MEDS: Cholecalciferol (D-3) 1,000 UNIT (25MCG) TABLET PO SCH (13:02)
[2021-10-23] MEDS: Ascorbic Acid 500 MG TABLET PO SCH (13:02)
[2021-10-23] MEDS: Furosemide 20 MG/2 ML VIAL IVP SCH ×2 (13:04→20:36)
[2021-10-23 15:48] LABS: Source of Body Fluid RUL BAL
[2021-10-23 16:07] LABS: Basophils % 0.1 %; Eosinophils % 0.1 %; Hematocrit 36.9 % (35.3-44.9); Hemoglobin 11.4 g/dL (11.5-15.4); Immature Granulocytes % 0.7 % (0-4); Lymphocytes % 6.9 %; Mean Corpuscular HGB Conc 30.9 g/dL (31.6-35.5); Mean Corpuscular Hemoglobin 26.8 pg (28.0-33.3); Mean Corpuscular Volume 86.8 fL (83.0-100.0); Mean Platelet Volume 9.1 fL (9.4-12.4); Monocytes # 0.4 K/mcL (0.0-1.3); Monocytes % 2.6 %; Platelet Count 295 K/mcL (140-400); Red Blood Count 4.25 M/mcL (3.82-4.97); Red Cell Distribution Width 14.6 % (11.5-14.5); Segmented Neutrophils % 89.6 %
[2021-10-23 16:21] LABS: Neutrophils # 13.2 K/mcL (1.6-8.9); White Blood Count 14.7 K/mcL (4.3-11.1)
[2021-10-23 16:24] LABS: BUN/Creatinine Ratio 27 (6-26); Blood Urea Nitrogen 21 mg/dL (8-23); C-Reactive Protein 34 mg/L (Less than 10); Calcium 9.9 mg/dL (8.6-10.3); Carbon Dioxide 36 mEq/L (23-29); Chloride 92 mEq/L (98-107); Glucose 148 mg/dL (70-105); Magnesium 1.9 mg/dL (1.6-2.6); Osmolality,Calculated 288 (280-300); Potassium 4.4 mEq/L (3.5-5.1); Sodium 136 mEq/L (136-145); eGFR For African Americans > 60 (> 60); eGFR For Non-African Americans > 60 (> 60)
[2021-10-23 17:42] LABS: Appearance of Body Fluid Cloudy (Clear); Volume of Body Fluid 20 mL
[2021-10-23] MEDS: *HR* Heparin 5,000 UNIT/ML VIAL SQ SCH (18:12)
[2021-10-23] MEDS: estradioL 0.5 MG TABLET PO SCH (20:27)
[2021-10-23] MEDS: Apixaban 5 MG TABLET PO SCH (20:27)
[2021-10-24] MEDS: Ipratropium/Albuterol Neb 3 ML IH PRN ×2 (03:23→09:41)
[2021-10-24] MEDS: Acetylcysteine 10% 2 ML INHSOL IH SCH ×4 (03:24→19:53)
[2021-10-24] MEDS: *HR* Heparin 5,000 UNIT/ML VIAL SQ SCH ×2 (06:18→18:22)
[2021-10-24] MEDS: Vitamin B Complex/Vit C/Vit E 1 EACH TABLET PO SCH (09:09)
[2021-10-24] MEDS: Nystatin SUSP 5 ML UD.LIQ PO SCH ×4 (09:09→21:30)
[2021-10-24] MEDS: Cholecalciferol (D-3) 1,000 UNIT (25MCG) TABLET PO SCH (09:09)
[2021-10-24] MEDS: Zinc Sulfate 220 MG CAPSULE PO SCH (09:09)
[2021-10-24] MEDS: Furosemide 20 MG/2 ML VIAL IVP SCH ×2 (09:09→21:30)
[2021-10-24] MEDS: Apixaban 5 MG TABLET PO SCH ×2 (09:09→21:30)
[2021-10-24] MEDS: Ascorbic Acid 500 MG TABLET PO SCH (09:09)
[2021-10-24] MEDS: FLUoxetine 20 MG CAPSULE PO SCH (09:10)
[2021-10-24] MEDS: Budesonide/Formoterol 80/4.5 1 PUFF INH IH SCH ×2 (09:41→19:47)
[2021-10-24 18:53] LABS: BUN/Creatinine Ratio 38 (6-26); Blood Urea Nitrogen 27 mg/dL (8-23); Calcium 9.8 mg/dL (8.6-10.3); Carbon Dioxide 33 mEq/L (23-29); Chloride 94 mEq/L (98-107); Glucose 114 mg/dL (70-105); Magnesium 2.1 mg/dL (1.6-2.6); Osmolality,Calculated 286 (280-300); Potassium 4.1 mEq/L (3.5-5.1); Sodium 135 mEq/L (136-145); eGFR For African Americans > 60 (> 60); eGFR For Non-African Americans > 60 (> 60)
[2021-10-24] MEDS: Benzonatate 100 MG CAPSULE PO PRN (21:30)
[2021-10-24] MEDS: estradioL 0.5 MG TABLET PO SCH (21:30)
[2021-10-25] MEDS ORDERED: Ipratropium 1 PUFF INHALER IH PRN (02:25)
[2021-10-25] MEDS: *HR* Heparin 5,000 UNIT/ML VIAL SQ SCH ×2 (05:08→17:35)
[2021-10-25] MEDS: Budesonide/Formoterol 80/4.5 1 PUFF INH IH SCH ×2 (07:14→20:11)
[2021-10-25] MEDS: Nystatin SUSP 5 ML UD.LIQ PO SCH ×4 (08:47→20:22)
[2021-10-25] MEDS: FLUoxetine 20 MG CAPSULE PO SCH (08:47)
[2021-10-25] MEDS: Cholecalciferol (D-3) 1,000 UNIT (25MCG) TABLET PO SCH (08:48)
[2021-10-25] MEDS: Furosemide 20 MG/2 ML VIAL IVP SCH ×2 (08:48→20:22)
[2021-10-25] MEDS: Ascorbic Acid 500 MG TABLET PO SCH (08:48)
[2021-10-25] MEDS: Zinc Sulfate 220 MG CAPSULE PO SCH (08:48)
[2021-10-25] MEDS: Apixaban 5 MG TABLET PO SCH ×2 (08:48→20:22)
[2021-10-25] MEDS: Vitamin B Complex/Vit C/Vit E 1 EACH TABLET PO SCH (08:48)
[2021-10-25] MEDS: levoFLOXacin 750 MG/150 ML 750 MG/150 ML BAG IVPB SCH (11:42)
[2021-10-25] MEDS: estradioL 0.5 MG TABLET PO SCH (20:22)
[2021-10-25] MEDS: Benzonatate 100 MG CAPSULE PO PRN (21:28)
[2021-10-25 22:29] LABS: Influenza A PCR Body Fluid NOT DETECTED; Influenza B PCR Body Fluid NOT DETECTED
[2021-10-26 02:36] LABS: Hematocrit 42.9 % (35.3-44.9); Hemoglobin 12.9 g/dL (11.5-15.4); Mean Corpuscular HGB Conc 30.1 g/dL (31.6-35.5); Mean Corpuscular Hemoglobin 26.3 pg (28.0-33.3); Mean Corpuscular Volume 87.4 fL (83.0-100.0); Mean Platelet Volume 9.5 fL (9.4-12.4); Platelet Count 307 K/mcL (140-400); Red Blood Count 4.91 M/mcL (3.82-4.97); Red Cell Distribution Width 15.1 % (11.5-14.5); White Blood Count 19.4 K/mcL (4.3-11.1)
[2021-10-26 02:55] LABS: BUN/Creatinine Ratio 34 (6-26); Blood Urea Nitrogen 30 mg/dL (8-23); Calcium 9.9 mg/dL (8.6-10.3); Carbon Dioxide 34 mEq/L (23-29); Chloride 93 mEq/L (98-107); Glucose 143 mg/dL (70-105); Osmolality,Calculated 289 (280-300); Potassium 3.6 mEq/L (3.5-5.1); Sodium 135 mEq/L (136-145); eGFR For African Americans > 60 (> 60); eGFR For Non-African Americans > 60 (> 60)
[2021-10-26 05:18] LABS: RSV PCR Body Fluid NOT DETECTED; RVP Body Fluid Source NOT PROVIDED
[2021-10-26] MEDS: *HR* Heparin 5,000 UNIT/ML VIAL SQ SCH (06:17)
[2021-10-26] MEDS: Budesonide/Formoterol 80/4.5 1 PUFF INH IH SCH ×2 (07:37→19:52)
[2021-10-26] MEDS: Apixaban 5 MG TABLET PO SCH ×2 (08:39→20:09)
[2021-10-26] MEDS: Ascorbic Acid 500 MG TABLET PO SCH (08:39)
[2021-10-26] MEDS: FLUoxetine 20 MG CAPSULE PO SCH (08:39)
[2021-10-26] MEDS: Zinc Sulfate 220 MG CAPSULE PO SCH (08:39)
[2021-10-26] MEDS: Cholecalciferol (D-3) 1,000 UNIT (25MCG) TABLET PO SCH (08:39)
[2021-10-26] MEDS: Vitamin B Complex/Vit C/Vit E 1 EACH TABLET PO SCH (08:39)
[2021-10-26] MEDS: Furosemide 20 MG/2 ML VIAL IVP SCH ×2 (08:39→20:09)
[2021-10-26] MEDS: Nystatin SUSP 5 ML UD.LIQ PO SCH ×4 (08:39→20:08)
[2021-10-26] MEDS: levoFLOXacin 750 MG/150 ML 750 MG/150 ML BAG IVPB SCH (08:40)
[2021-10-26] MEDS: estradioL 0.5 MG TABLET PO SCH (20:08)
[2021-10-27] MEDS: Budesonide/Formoterol 80/4.5 1 PUFF INH IH SCH ×2 (07:51→19:46)
[2021-10-27] MEDS: Zinc Sulfate 220 MG CAPSULE PO SCH (07:59)
[2021-10-27] MEDS: Ascorbic Acid 500 MG TABLET PO SCH (07:59)
[2021-10-27] MEDS: Vitamin B Complex/Vit C/Vit E 1 EACH TABLET PO SCH (07:59)
[2021-10-27] MEDS: FLUoxetine 20 MG CAPSULE PO SCH (07:59)
[2021-10-27] MEDS: Furosemide 20 MG/2 ML VIAL IVP SCH ×2 (07:59→20:26)
[2021-10-27] MEDS: Apixaban 5 MG TABLET PO SCH ×2 (07:59→20:26)
[2021-10-27] MEDS: Cholecalciferol (D-3) 1,000 UNIT (25MCG) TABLET PO SCH (07:59)
[2021-10-27] MEDS: Nystatin SUSP 5 ML UD.LIQ PO SCH ×4 (08:00→20:26)
[2021-10-27] MEDS: levoFLOXacin 750 MG/150 ML 750 MG/150 ML BAG IVPB SCH (08:00)
[2021-10-27 08:51] LABS: Hematocrit 38.9 % (35.3-44.9); Hemoglobin 12.1 g/dL (11.5-15.4); Mean Corpuscular HGB Conc 31.1 g/dL (31.6-35.5); Mean Corpuscular Hemoglobin 26.9 pg (28.0-33.3); Mean Corpuscular Volume 86.6 fL (83.0-100.0); Mean Platelet Volume 9.4 fL (9.4-12.4); Platelet Count 313 K/mcL (140-400); Red Blood Count 4.49 M/mcL (3.82-4.97); White Blood Count 18.3 K/mcL (4.3-11.1)
[2021-10-27 09:13] LABS: BUN/Creatinine Ratio 39 (6-26); Blood Urea Nitrogen 39 mg/dL (8-23); Calcium 9.7 mg/dL (8.6-10.3); Carbon Dioxide 34 mEq/L (23-29); Chloride 91 mEq/L (98-107); Glucose 193 mg/dL (70-105); Osmolality,Calculated 293 (280-300); Potassium 3.2 mEq/L (3.5-5.1); Sodium 134 mEq/L (136-145); eGFR For African Americans > 60 (> 60); eGFR For Non-African Americans 54 (> 60)
[2021-10-27] MEDS: estradioL 0.5 MG TABLET PO SCH (20:25)
[2021-10-28 05:41] LABS: Basophils % 0.2 %; Eosinophils # 0.5 K/mcL (0.0-0.6); Eosinophils % 2.7 %; Hematocrit 39.5 % (35.3-44.9); Immature Granulocytes % 1.6 % (0-4); Lymphocytes % 16.8 %; Mean Corpuscular HGB Conc 30.4 g/dL (31.6-35.5); Mean Corpuscular Hemoglobin 26.5 pg (28.0-33.3); Mean Corpuscular Volume 87.2 fL (83.0-100.0); Mean Platelet Volume 9.8 fL (9.4-12.4); Monocytes # 1.1 K/mcL (0.0-1.3); Platelet Count 344 K/mcL (140-400); Red Blood Count 4.53 M/mcL (3.82-4.97); Segmented Neutrophils % 72.7 %; White Blood Count 17.9 K/mcL (4.3-11.1)
[2021-10-28 06:07] LABS: BUN/Creatinine Ratio 37 (6-26); Blood Urea Nitrogen 31 mg/dL (8-23); Calcium 9.6 mg/dL (8.6-10.3); Carbon Dioxide 32 mEq/L (23-29); Chloride 92 mEq/L (98-107); Glucose 107 mg/dL (70-105); Osmolality,Calculated 285 (280-300); Potassium 3.6 mEq/L (3.5-5.1); Sodium 134 mEq/L (136-145); eGFR For African Americans > 60 (> 60); eGFR For Non-African Americans > 60 (> 60)
[2021-10-28] MEDS: Budesonide/Formoterol 80/4.5 1 PUFF INH IH SCH ×2 (07:31→20:23)
[2021-10-28] MEDS: Cholecalciferol (D-3) 1,000 UNIT (25MCG) TABLET PO SCH (08:17)
[2021-10-28] MEDS: Nystatin SUSP 5 ML UD.LIQ PO SCH ×4 (08:17→21:25)
[2021-10-28] MEDS: Apixaban 5 MG TABLET PO SCH ×2 (08:17→21:26)
[2021-10-28] MEDS: Zinc Sulfate 220 MG CAPSULE PO SCH (08:17)
[2021-10-28] MEDS: Furosemide 20 MG/2 ML VIAL IVP SCH ×2 (08:17→21:25)
[2021-10-28] MEDS: FLUoxetine 20 MG CAPSULE PO SCH (08:17)
[2021-10-28] MEDS: Vitamin B Complex/Vit C/Vit E 1 EACH TABLET PO SCH (08:17)
[2021-10-28] MEDS: Ascorbic Acid 500 MG TABLET PO SCH (08:17)
[2021-10-28] MEDS: levoFLOXacin 750 MG/150 ML 750 MG/150 ML BAG IVPB SCH (08:19)
[2021-10-28] MEDS: estradioL 0.5 MG TABLET PO SCH (21:25)
[2021-10-28] MEDS: Benzonatate 100 MG CAPSULE PO PRN (21:25)
[2021-10-29] MEDS: Budesonide/Formoterol 80/4.5 1 PUFF INH IH SCH ×2 (07:32→19:43)
[2021-10-29] MEDS: FLUoxetine 20 MG CAPSULE PO SCH (09:32)
[2021-10-29] MEDS: Apixaban 5 MG TABLET PO SCH ×2 (09:32→20:21)
[2021-10-29] MEDS: Cholecalciferol (D-3) 1,000 UNIT (25MCG) TABLET PO SCH (09:32)
[2021-10-29] MEDS: Zinc Sulfate 220 MG CAPSULE PO SCH (09:33)
[2021-10-29] MEDS: Nystatin SUSP 5 ML UD.LIQ PO SCH ×4 (09:33→20:22)
[2021-10-29] MEDS: Furosemide 20 MG/2 ML VIAL IVP SCH ×2 (09:33→20:22)
[2021-10-29] MEDS: Ascorbic Acid 500 MG TABLET PO SCH (09:33)
[2021-10-29] MEDS: Vitamin B Complex/Vit C/Vit E 1 EACH TABLET PO SCH (09:33)
[2021-10-29] MEDS: levoFLOXacin 750 MG/150 ML 750 MG/150 ML BAG IVPB SCH (09:34)
[2021-10-29] MEDS: estradioL 0.5 MG TABLET PO SCH (20:21)
[2021-10-29] MEDS ORDERED: Sennosides/Docusate Sodium TABLET PO SCH (21:00)
[2021-10-30 03:56] LABS: BUN/Creatinine Ratio 28 (6-26); Blood Urea Nitrogen 23 mg/dL (8-23); Calcium 9.9 mg/dL (8.6-10.3); Carbon Dioxide 27 mEq/L (23-29); Chloride 93 mEq/L (98-107); Glucose 102 mg/dL (70-105); Magnesium 1.9 mg/dL (1.6-2.6); Osmolality,Calculated 276 (280-300); Phosphorous 3.6 mg/dL (2.7-4.5); Potassium 4.3 mEq/L (3.5-5.1); Sodium 131 mEq/L (136-145); eGFR For African Americans > 60 (> 60); eGFR For Non-African Americans > 60 (> 60)
[2021-10-30 04:40] VITALS: PULSE 85
[2021-10-30 05:48] LABS: Basophils # 0.1 K/mcL (0.0-0.2); Basophils % 0.5 %; Eosinophils # 0.4 K/mcL (0.0-0.6); Eosinophils % 2.4 %; Hematocrit 39.8 % (35.3-44.9); Hemoglobin 12.6 g/dL (11.5-15.4); Immature Granulocytes % 2.2 % (0-4); Lymphocytes # 3.8 K/mcL (0.6-4.6); Lymphocytes % 22.1 %; Mean Corpuscular HGB Conc 31.7 g/dL (31.6-35.5); Mean Corpuscular Hemoglobin 27.2 pg (28.0-33.3); Mean Corpuscular Volume 85.8 fL (83.0-100.0); Mean Platelet Volume 9.9 fL (9.4-12.4); Monocytes # 1.4 K/mcL (0.0-1.3); Monocytes % 7.8 %; Neutrophils # 11.4 K/mcL (1.6-8.9); Platelet Count 370 K/mcL (140-400); Red Blood Count 4.64 M/mcL (3.82-4.97); Red Cell Distribution Width 14.9 % (11.5-14.5); White Blood Count 17.4 K/mcL (4.3-11.1)
[2021-10-30 06:48] VITALS: BP 131/65; TEMP 97.7
[2021-10-30] MEDS: Budesonide/Formoterol 80/4.5 1 PUFF INH IH SCH (08:07)
[2021-10-30 08:09] VITALS: O2SAT 95
[2021-10-30] MEDS ORDERED: levoFLOXacin 750 MG TABLET PO SCH (09:00)
== END 2021-10-30 08:43 | disposition expired | DRG 166 ==
LOC: 3NENU → SUATTDRO 13:50
PROVIDERS: ADMIT Internal Medicine; ATTEND Internal Medicine
PROC: ENDOBBX (2021-10-23 09:35)